=== PATIENT | male | born 1945 | race Caucasian/White ===

== ENCOUNTER 2016-11-13 20:27 | Inpatient (IN) | payer MEDICARE ==
[~2016-11-13] VITALS: Ht 182.9 cm; Wt 92.1 kg
[2016-11-13 21:23] LABS: BASOPHILS # (AUTO) 0.1 /CMM (0.0-0.2); BASOPHILS % (AUTO) 0.8 % (0.0-2.0); DIFF TOTAL % 100 %; EOSINOPHILS # (AUTO) 0.3 /CMM (0.0-0.7); EOSINOPHILS % (AUTO) 3.1 % (0.0-6.0); HEMATOCRIT 43 % (39-51); HEMOGLOBIN 13.8 g/dL (13.5-17.5); LYMPHOCYTES # (AUTO) 2.4 /CMM (0.8-4.8); LYMPHOCYTES % (AUTO) 23.3 % (20.0-44.0); MEAN CORPUSCULAR HEMOGLOBIN 28 PG (26.0-33.0); MEAN CORPUSCULAR HGB CONC 33 g/dl (31.0-36.0); MEAN CORPUSCULAR VOLUME 87 fL (80-96); MONOCYTES # (AUTO) 0.9 /CMM (0.1-1.30); MONOCYTES % (AUTO) 8.5 % (2.0-12.0); NEUTROPHILS # (AUTO) 6.7 /CMM (1.8-8.9); NEUTROPHILS % (AUTO) 64.3 % (43.0-81.0); PLATELET COUNT (AUTO) 180 /CMM (150-450); RED BLOOD CELL COUNT(AUTO) 4.89 MIL/uL (4.5-6.0); WHITE BLOOD COUNT (AUTO) 10.4 K/uL (4.3-11.0)
[2016-11-13 21:30] LABS: KETONES,URINE NEGATIVE (NEGATIVE); LEUKOCYTE ESTERASE ,URINE NEGATIVE (NEGATIVE)
[2016-11-13 21:31] LABS: ADD UA MICROSCOPIC YES
[2016-11-13 21:35] LABS: ADD URINE CULTURE NO; RBC,URINE 21-50 /HPF (0-2)
[2016-11-13 21:39] LABS: ANION GAP 13 (5-14); CALCIUM, SERUM 8.7 mg/dL (8.5-10.1); CARBON DIOXIDE 29 mmol/L (21-32); CHLORIDE 102 mmol/L (98-107); GFR 74 mL/min (>60); GLUCOSE 115 mg/dL (74-106); POTASSIUM 4.4 mmol/L (3.5-5.1); SODIUM SERUM 139 mmol/L (136-145); UREA NITROGEN, BLOOD 16 mg/dL (7-18)
[2016-11-13 21:45] LABS: CANNABINOID, URINE NEGATIVE (NEGATIVE); PHENCYCLIDINE SCREEN,URINE NEGATIVE (NEGATIVE)
[2016-11-13 21:45] LABS: ALANINE AMINOTRANSFERASE 15 U/L (12-78); ALBUMIN 3.8 g/dL (3.4-5.0); ASPARTATE AMINOTRANSFERASE 13 U/L (15-37); BILIRUBIN,DIRECT 0.1 mg/dL (0.0-0.2); BILIRUBIN,TOTAL 0.2 mg/dL (0.2-1.0); INDIRECT BILIRUBIN 0.1 mg/dL (0.0-1.1); TOTAL PROTEIN, SERUM 7.2 g/dL (6.4-8.2)
[2016-11-13] MEDS ORDERED: LISI-607 PO (22:31)
[2016-11-13] MEDS ORDERED: AMLO5TAB2 PO (22:31)
[2016-11-13] MEDS ORDERED: QUET50TA PO (22:31)
[2016-11-13] MEDS ORDERED: CARB200T PO (22:31)
[2016-11-13] MEDS ORDERED: PANT40TA2 PO (22:31)
[2016-11-13] MEDS ORDERED: SIMV20TA6 PO (22:31)
[2016-11-13 22:45] VITALS: BP 155/89
[2016-11-13] MEDS ORDERED: ACETAMINOPHEN 325 MG TABLET PO PRN (23:30)
[2016-11-13] MEDS ORDERED: MAGNESIUM HYDROXIDE 30 ML UDC PO PRN (23:30)
[2016-11-13] MEDS ORDERED: MAG HYDROX/AL HYDROX/SIMETH 30 ML UDC PO PRN (23:30)
[2016-11-14 06:46] LABS: BASOPHILS % (AUTO) 0.4 % (0.0-2.0); DIFF TOTAL % 100 %; EOSINOPHILS # (AUTO) 0.2 /CMM (0.0-0.7); EOSINOPHILS % (AUTO) 2.8 % (0.0-6.0); HEMATOCRIT 44 % (39-51); HEMOGLOBIN 14.6 g/dL (13.5-17.5); LYMPHOCYTES # (AUTO) 1.9 /CMM (0.8-4.8); LYMPHOCYTES % (AUTO) 22.7 % (20.0-44.0); MEAN CORPUSCULAR HEMOGLOBIN 29 PG (26.0-33.0); MEAN CORPUSCULAR HGB CONC 33 g/dl (31.0-36.0); MEAN CORPUSCULAR VOLUME 87 fL (80-96); MONOCYTES # (AUTO) 0.7 /CMM (0.1-1.30); MONOCYTES % (AUTO) 8.6 % (2.0-12.0); NEUTROPHILS # (AUTO) 5.4 /CMM (1.8-8.9); NEUTROPHILS % (AUTO) 65.5 % (43.0-81.0); PLATELET COUNT (AUTO) 189 /CMM (150-450); RED BLOOD CELL COUNT(AUTO) 5.07 MIL/uL (4.5-6.0); WHITE BLOOD COUNT (AUTO) 8.2 K/uL (4.3-11.0)
[2016-11-14 06:53] LABS: ALBUMIN 3.7 g/dL (3.4-5.0); BILIRUBIN,TOTAL 0.3 mg/dL (0.2-1.0); CALCIUM, SERUM 8.5 mg/dL (8.5-10.1); CREATININE 0.8 mg/dL (0.6-1.3); POTASSIUM 4.3 mmol/L (3.5-5.1); TOTAL PROTEIN, SERUM 7.1 g/dL (6.4-8.2)
[2016-11-14 08:00] VITALS: BP 121/79
[2016-11-14] MEDS: LISINOPRIL (5MG) 5 MG TABLET PO SCH (08:44)
[2016-11-14] MEDS: AMLODIPINE BESYLATE 5 MG TABLET PO SCH (08:44)
[2016-11-14] MEDS: PANTOPRAZOLE 40 MG TABLET.DR PO SCH (08:44)
[2016-11-14 16:00] VITALS: BP 117/79
[2016-11-14] MEDS ORDERED: METF10002 PO (16:49)
[2016-11-14] MEDS: QUETIAPINE FUMARATE 25 MG TABLET PO SCH (17:11)
[2016-11-14] MEDS: CARBAMAZEPINE 200 MG TABLET PO SCH (17:11)
[2016-11-14] MEDS: METFORMIN 500 MG TABLET PO SCH (18:42)
[2016-11-14] MEDS: SIMVASTATIN 20 MG TABLET PO SCH (21:21)
[2016-11-14 23:40] VITALS: BP 143/91
[2016-11-15 08:00] VITALS: BP 121/83
[2016-11-15] MEDS: AMLODIPINE BESYLATE 5 MG TABLET PO SCH (08:40)
[2016-11-15] MEDS: QUETIAPINE FUMARATE 25 MG TABLET PO SCH ×2 (08:40→16:22)
[2016-11-15] MEDS: CARBAMAZEPINE 200 MG TABLET PO SCH ×2 (08:40→16:22)
[2016-11-15] MEDS: METFORMIN 500 MG TABLET PO SCH ×2 (08:40→16:22)
[2016-11-15] MEDS: PANTOPRAZOLE 40 MG TABLET.DR PO SCH (08:40)
[2016-11-15] MEDS: LISINOPRIL (5MG) 5 MG TABLET PO SCH (08:41)
[2016-11-15 15:48] VITALS: BP 125/77
[2016-11-15 20:00] VITALS: BP 144/69
[2016-11-15] MEDS: SIMVASTATIN 20 MG TABLET PO SCH (21:14)
[2016-11-16] MEDS: CARBAMAZEPINE 200 MG TABLET PO SCH ×2 (08:26→17:33)
[2016-11-16] MEDS: PANTOPRAZOLE 40 MG TABLET.DR PO SCH (08:26)
[2016-11-16] MEDS: METFORMIN 500 MG TABLET PO SCH ×2 (08:27→17:33)
[2016-11-16] MEDS: LISINOPRIL (5MG) 5 MG TABLET PO SCH (08:27)
[2016-11-16] MEDS: AMLODIPINE BESYLATE 5 MG TABLET PO SCH (08:27)
[2016-11-16] MEDS: QUETIAPINE FUMARATE 25 MG TABLET PO SCH ×2 (08:27→17:33)
[2016-11-16 08:45] VITALS: BP 105/76
[2016-11-16 17:17] VITALS: BP 110/70
[2016-11-16 19:53] VITALS: BP 132/90
[2016-11-16] MEDS: SIMVASTATIN 20 MG TABLET PO SCH (21:20)
[2016-11-17 08:00] VITALS: BP 105/60
[2016-11-17] MEDS: CARBAMAZEPINE 200 MG TABLET PO SCH ×2 (08:44→16:36)
[2016-11-17] MEDS: METFORMIN 500 MG TABLET PO SCH ×2 (08:44→16:36)
[2016-11-17] MEDS: QUETIAPINE FUMARATE 25 MG TABLET PO SCH (08:45)
[2016-11-17] MEDS: PANTOPRAZOLE 40 MG TABLET.DR PO SCH (08:46)
[2016-11-17] MEDS: LISINOPRIL (5MG) 5 MG TABLET PO SCH (08:47)
[2016-11-17] MEDS: AMLODIPINE BESYLATE 5 MG TABLET PO SCH (08:47)
[2016-11-17 16:00] VITALS: BP 118/78
[2016-11-17 19:46] VITALS: BP 124/80
[2016-11-17] MEDS: QUETIAPINE FUMARATE 100 MG TABLET PO SCH (21:36)
[2016-11-17] MEDS: SIMVASTATIN 20 MG TABLET PO SCH (21:36)
[2016-11-18 08:21] VITALS: BP 127/82
[2016-11-18 08:24] LABS: CALCIUM, SERUM 8.5 mg/dL (8.5-10.1); CREATININE 0.8 mg/dL (0.6-1.3); POTASSIUM 4.4 mmol/L (3.5-5.1)
[2016-11-18] MEDS: QUETIAPINE FUMARATE 100 MG TABLET PO SCH ×2 (08:29→21:29)
[2016-11-18] MEDS: AMLODIPINE BESYLATE 5 MG TABLET PO SCH (08:29)
[2016-11-18] MEDS: LISINOPRIL (5MG) 5 MG TABLET PO SCH (08:29)
[2016-11-18] MEDS: CARBAMAZEPINE 200 MG TABLET PO SCH ×2 (08:29→17:10)
[2016-11-18] MEDS: PANTOPRAZOLE 40 MG TABLET.DR PO SCH (08:30)
[2016-11-18] MEDS: METFORMIN 500 MG TABLET PO SCH ×2 (08:30→17:10)
[2016-11-18 08:34] LABS: BASOPHILS % (AUTO) 0.4 % (0.0-2.0); DIFF TOTAL % 100 %; EOSINOPHILS # (AUTO) 0.1 /CMM (0.0-0.7); EOSINOPHILS % (AUTO) 1.7 % (0.0-6.0); HEMATOCRIT 44 % (39-51); HEMOGLOBIN 14.7 g/dL (13.5-17.5); LYMPHOCYTES # (AUTO) 1.7 /CMM (0.8-4.8); MEAN CORPUSCULAR HEMOGLOBIN 29 PG (26.0-33.0); MEAN CORPUSCULAR HGB CONC 34 g/dl (31.0-36.0); MEAN CORPUSCULAR VOLUME 87 fL (80-96); MONOCYTES # (AUTO) 0.6 /CMM (0.1-1.30); MONOCYTES % (AUTO) 7.6 % (2.0-12.0); NEUTROPHILS # (AUTO) 5.2 /CMM (1.8-8.9); NEUTROPHILS % (AUTO) 68.3 % (43.0-81.0); PLATELET COUNT (AUTO) 196 /CMM (150-450); RED BLOOD CELL COUNT(AUTO) 5.02 MIL/uL (4.5-6.0); WHITE BLOOD COUNT (AUTO) 7.7 K/uL (4.3-11.0)
[2016-11-18 16:00] VITALS: BP 116/69
[2016-11-18 20:39] VITALS: BP 132/76
[2016-11-18] MEDS: SIMVASTATIN 20 MG TABLET PO SCH (21:29)
[2016-11-19] MEDS: LISINOPRIL (5MG) 5 MG TABLET PO SCH (08:08)
[2016-11-19] MEDS: METFORMIN 500 MG TABLET PO SCH ×2 (08:08→16:55)
[2016-11-19] MEDS: AMLODIPINE BESYLATE 5 MG TABLET PO SCH (08:08)
[2016-11-19] MEDS: CARBAMAZEPINE 200 MG TABLET PO SCH ×2 (08:09→16:55)
[2016-11-19] MEDS: PANTOPRAZOLE 40 MG TABLET.DR PO SCH (08:09)
[2016-11-19] MEDS: QUETIAPINE FUMARATE 100 MG TABLET PO SCH ×2 (08:09→21:27)
[2016-11-19 08:21] VITALS: BP 100/68
[2016-11-19] MEDS ORDERED: LORAZEPAM 0.5 MG TABLET PO PRN (13:30)
[2016-11-19 16:23] VITALS: BP 108/66
[2016-11-19 19:55] VITALS: BP 123/80
[2016-11-19] MEDS: SIMVASTATIN 20 MG TABLET PO SCH (21:27)
[2016-11-20 08:00] VITALS: BP 117/80
[2016-11-20] MEDS: QUETIAPINE FUMARATE 100 MG TABLET PO SCH ×2 (08:16→20:29)
[2016-11-20] MEDS: CARBAMAZEPINE 200 MG TABLET PO SCH ×2 (08:16→16:32)
[2016-11-20] MEDS: METFORMIN 500 MG TABLET PO SCH ×2 (08:16→16:33)
[2016-11-20] MEDS: PANTOPRAZOLE 40 MG TABLET.DR PO SCH (08:16)
[2016-11-20] MEDS: AMLODIPINE BESYLATE 5 MG TABLET PO SCH (08:16)
[2016-11-20] MEDS: LISINOPRIL (5MG) 5 MG TABLET PO SCH (08:17)
[2016-11-20 16:00] VITALS: BP 96/52
[2016-11-20 20:00] VITALS: BP 127/78
[2016-11-20] MEDS: SIMVASTATIN 20 MG TABLET PO SCH (21:17)
[2016-11-21 08:00] VITALS: BP 130/78
[2016-11-21 08:28] VITALS: BP 130/78
[2016-11-21] MEDS: CARBAMAZEPINE 200 MG TABLET PO SCH (08:28)
[2016-11-21] MEDS: PANTOPRAZOLE 40 MG TABLET.DR PO SCH (08:28)
[2016-11-21] MEDS: AMLODIPINE BESYLATE 5 MG TABLET PO SCH (08:28)
[2016-11-21] MEDS: QUETIAPINE FUMARATE 100 MG TABLET PO SCH (08:28)
[2016-11-21] MEDS: METFORMIN 500 MG TABLET PO SCH (08:28)
[2016-11-21] MEDS: LISINOPRIL (5MG) 5 MG TABLET PO SCH (08:28)
== END 2016-11-21 11:45 | DRG 885 ==
LOC: ER 20:30 → GPS 22:20
PROVIDERS: ADMIT Psychiatry & Neurology Psychiatry; ATTEND Internal Medicine
DX: F39 Unspecified mood [affective] disorder (principal); F29 Unspecified psychosis not due to a substance or known physiological condition; E11.9 Type 2 diabetes mellitus without complications; E78.5 Hyperlipidemia, unspecified; F03.90 Unspecified dementia, unspecified severity, without behavioral disturbance, psychotic disturbance, mood disturbance, and anxiety; F32.9 Major depressive disorder, single episode, unspecified; K21.9 Gastro-esophageal reflux disease without esophagitis; I10 Essential (primary) hypertension; F41.9 Anxiety disorder, unspecified; Z91.19 Patient's noncompliance with other medical treatment and regimen
CPT/HCPCS: 36415; 80048-TC; 80053-TC; 80061-TC; 80076-TC; 80305; 81000-TC; 85025-TC; 87081-TC; A4606; G6040-TC; Z7610

== ENCOUNTER 2017-01-02 12:55 | Inpatient (IN) | payer MEDICARE, OTHER ==
[~2017-01-02] VITALS: Ht 180.3 cm; Wt 93.0 kg
[~2017-01-02 12:55] MED LIST: AMLO5TAB2 PO; CARB200T PO; LISI-607 PO; METF10002 PO; PANT40TA2 PO; QUET50TA PO; SIMV20TA6 PO
[2017-01-02] MEDS ORDERED: MAGN400O6 PO (13:06)
[2017-01-02] MEDS ORDERED: METF500T4 PO (13:06)
[2017-01-02] MEDS ORDERED: LORA0.5T PO (13:06)
[2017-01-02] MEDS ORDERED: BISA10SU8 RC (13:06)
[2017-01-02] MEDS ORDERED: DOCU-25 PO (13:06)
[2017-01-02] MEDS ORDERED: NA P133E RC (13:06)
[2017-01-02] MEDS ORDERED: QUET25TA PO (13:06)
[2017-01-02] MEDS ORDERED: IV NS 0.9% 1,000 ML BAG IV ONE (13:30)
[2017-01-02] MEDS ORDERED: IV SET PRIMARY 1 EA INFUS.SET MC ONE (13:48)
[2017-01-02] MEDS ORDERED: IV NS 0.9% 1,000 ML ONE (13:48)
[2017-01-02 13:57] LABS: BASOPHILS # (AUTO) 0.1 /CMM (0.0-0.2); BASOPHILS % (AUTO) 0.6 % (0.0-2.0); DIFF TOTAL % 100 %; EOSINOPHILS # (AUTO) 0.3 /CMM (0.0-0.7); EOSINOPHILS % (AUTO) 2.8 % (0.0-6.0); HEMATOCRIT 44 % (39-51); HEMOGLOBIN 14.2 g/dL (13.5-17.5); LYMPHOCYTES # (AUTO) 2.4 /CMM (0.8-4.8); LYMPHOCYTES % (AUTO) 21.8 % (20.0-44.0); MEAN CORPUSCULAR HEMOGLOBIN 28 PG (26.0-33.0); MEAN CORPUSCULAR HGB CONC 32 g/dl (31.0-36.0); MEAN CORPUSCULAR VOLUME 86 fL (80-96); MONOCYTES # (AUTO) 0.9 /CMM (0.1-1.30); MONOCYTES % (AUTO) 8.6 % (2.0-12.0); NEUTROPHILS # (AUTO) 7.3 /CMM (1.8-8.9); NEUTROPHILS % (AUTO) 66.2 % (43.0-81.0); PLATELET COUNT (AUTO) 233 /CMM (150-450)
[2017-01-02 14:06] LABS: CALCIUM, SERUM 8.4 mg/dL (8.5-10.1); CREATININE 0.8 mg/dL (0.6-1.3); POTASSIUM 4.2 mmol/L (3.5-5.1)
[2017-01-02] MEDS ORDERED: IV NS 0.9% 250 ML IV ONE (14:07)
[2017-01-02] MEDS ORDERED: IOHEXOL-300 100 ML VIAL IV ONE (14:07)
[2017-01-02] MEDS ORDERED: CT SWABBABLE VALVE TRANS SET 1 EA INFUS.SET MC ONE (14:07)
[2017-01-02 14:10] LABS: INR 0.99 (0.87-1.13); PROTHROMBIN TIME 10.4 SECS (9.5-12.7)
[2017-01-02 14:12] LABS: ALBUMIN 3.5 g/dL (3.4-5.0); BILIRUBIN,DIRECT 0.1 mg/dL (0.0-0.2); BILIRUBIN,TOTAL 0.2 mg/dL (0.2-1.0); INDIRECT BILIRUBIN 0.1 mg/dL (0.0-1.1); TOTAL PROTEIN, SERUM 7.2 g/dL (6.4-8.2)
[2017-01-02 14:40] LABS: THYROID STIMULATING HORMONE 0.488 uIU/mL (0.358-3.74)
[2017-01-02] MEDS ORDERED: MAGNESIUM HYDROXIDE 30 ML UDC PO PRN ×2 (18:30→22:00)
[2017-01-02] MEDS ORDERED: HYDROCODONE/APAP 5/325MG 1 EACH TABLET PO PRN (18:30)
[2017-01-02] MEDS ORDERED: ACETAMINOPHEN 325 MG TABLET PO PRN (18:30)
[2017-01-02] MEDS ORDERED: MAG HYDROX/AL HYDROX/SIMETH 30 ML UDC PO PRN (18:30)
[2017-01-02] MEDS ORDERED: ONDANSETRON HCL/PF 4 MG/2 ML VIAL IVP PRN (18:30)
[2017-01-02] MEDS ORDERED: LORAZEPAM 0.5 MG TABLET PO PRN ×2 (19:00→20:00)
[2017-01-02 20:15] VITALS: BP 143/75
[2017-01-02] MEDS ORDERED: TEMAZEPAM 15 MG CAPSULE PO PRN (22:00)
[2017-01-02] MEDS ORDERED: SIMVASTATIN 20 MG TABLET PO SCH (22:00)
[2017-01-02] MEDS: QUETIAPINE FUMARATE 100 MG TABLET PO SCH (22:02)
[2017-01-02] MEDS: CARBAMAZEPINE 200 MG TABLET PO SCH (22:02)
[2017-01-03 07:30] LABS: BASOPHILS % (AUTO) 0.3 % (0.0-2.0); DIFF TOTAL % 100 %; EOSINOPHILS # (AUTO) 0.3 /CMM (0.0-0.7); EOSINOPHILS % (AUTO) 3.2 % (0.0-6.0); HEMATOCRIT 45 % (39-51); HEMOGLOBIN 14.8 g/dL (13.5-17.5); LYMPHOCYTES # (AUTO) 2.6 /CMM (0.8-4.8); LYMPHOCYTES % (AUTO) 28.4 % (20.0-44.0); MEAN CORPUSCULAR HEMOGLOBIN 29 PG (26.0-33.0); MEAN CORPUSCULAR HGB CONC 33 g/dl (31.0-36.0); MEAN CORPUSCULAR VOLUME 87 fL (80-96); MONOCYTES # (AUTO) 0.9 /CMM (0.1-1.30); MONOCYTES % (AUTO) 9.7 % (2.0-12.0); NEUTROPHILS # (AUTO) 5.3 /CMM (1.8-8.9); NEUTROPHILS % (AUTO) 58.4 % (43.0-81.0); PLATELET COUNT (AUTO) 236 /CMM (150-450); RED BLOOD CELL COUNT(AUTO) 5.15 MIL/uL (4.5-6.0); WHITE BLOOD COUNT (AUTO) 9.2 K/uL (4.3-11.0)
[2017-01-03] MEDS ORDERED: PANTOPRAZOLE 40 MG TABLET.DR PO SCH (07:30)
[2017-01-03 07:45] LABS: CALCIUM, SERUM 8.8 mg/dL (8.5-10.1); CREATININE 0.9 mg/dL (0.6-1.3); PHOSPHORUS 4.2 mg/dL (2.5-4.9); POTASSIUM 4.9 mmol/L (3.5-5.1)
[2017-01-03 08:00] VITALS: BP 124/74
[2017-01-03] MEDS: CARBAMAZEPINE 200 MG TABLET PO SCH ×2 (08:19→16:40)
[2017-01-03] MEDS: METFORMIN 500 MG TABLET PO SCH ×2 (08:19→16:41)
[2017-01-03 08:21] VITALS: BP 131/73
[2017-01-03] MEDS: QUETIAPINE FUMARATE 100 MG TABLET PO SCH (08:21)
[2017-01-03] MEDS ORDERED: AMLODIPINE BESYLATE 5 MG TABLET PO SCH (09:00)
[2017-01-03] MEDS ORDERED: METFORMIN 500 MG TABLET PO SCH (09:00)
[2017-01-03] MEDS ORDERED: ENOXAPARIN SODIUM 40 MG/0.4 ML DISP.SYRIN SQ SCH (09:00)
[2017-01-03] MEDS ORDERED: DOCUSATE SODIUM 100 MG CAPSULE PO SCH ×2 (09:00)
[2017-01-03] MEDS ORDERED: LISINOPRIL (5MG) 5 MG TABLET PO SCH (09:00)
[2017-01-03] MEDS ORDERED: IV NS 0.9% 500 ML IV ONE (18:30)
== END 2017-01-03 18:30 | DRG 606 ==
LOC: ER 12:56 → MED 19:27
PROVIDERS: ADMIT Nurse Practitioner Acute Care; ATTEND Nurse Practitioner Acute Care
DX: D17.0 Benign lipomatous neoplasm of skin and subcutaneous tissue of head, face and neck (principal); G93.40 Encephalopathy, unspecified; I10 Essential (primary) hypertension; E11.9 Type 2 diabetes mellitus without complications; F32.9 Major depressive disorder, single episode, unspecified; F29 Unspecified psychosis not due to a substance or known physiological condition; E78.5 Hyperlipidemia, unspecified; K21.9 Gastro-esophageal reflux disease without esophagitis; F03.90 Unspecified dementia, unspecified severity, without behavioral disturbance, psychotic disturbance, mood disturbance, and anxiety
CPT/HCPCS: 36415; 70491-TC; 80048-TC; 80061-TC; 80076-TC; 82962-TC; 83735-TC; 84100-TC; 84439-TC; 84443-TC; 85025-TC; 85730-TC; 87081-TC; A4606; J1650; J7030; J7040; J7050; Q9967; Z7610

== ENCOUNTER 2017-05-06 16:35 | Inpatient (IN) | payer MEDICARE, OTHER ==
[~2017-05-06] VITALS: Ht 182.9 cm; Wt 88.9 kg
[~2017-05-06 16:35] MED LIST changes: +BISA10SU8 RC; +DOCU-25 PO; +LORA0.5T PO; +MAGN400O6 PO; -METF10002 PO; +METF500T4 PO; +NA P133E RC; +QUET25TA PO; -QUET50TA PO
--- NOTE | 2017-05-06 16:53 | NUR ---
PT BIB PA FOR EVAL D/T INCREASED AGITATION X1 WK PER EMS. ON PRESENTATION PT IS CALM, COPPERATIVE, COMPLIANT WITH STAFF INSTRUCTION. A/OX2. DENIES PHYSICAL COMPLAINTS OR PAIN. NAD NOTED. IN ER BED 09.
--- NOTE | 2017-05-06 16:58 | NUR ---
BOATBUILDER APPRENTICE WOOD AT BEDSIDE
[2017-05-06 17:14] LABS: EOSINOPHILS % (AUTO) 5.6 % (0.0-6.0)
[2017-05-06 17:18] LABS: CALCIUM, SERUM 8.7 mg/dL (8.5-10.1); CARBON DIOXIDE 29 mmol/L (21-32); CHLORIDE 99 mmol/L (98-107); CREATININE 0.9 mg/dL (0.6-1.3); GLUCOSE 101 mg/dL (74-106); POTASSIUM 4.4 mmol/L (3.5-5.1); SODIUM SERUM 136 mmol/L (136-145); UREA NITROGEN, BLOOD 13 mg/dL (7-18)
[2017-05-06 17:20] LABS: BASOPHILS # (AUTO) 0.2 /CMM (0.0-0.2); BASOPHILS % (AUTO) 1.4 % (0.0-2.0); EOSINOPHILS # (AUTO) 0.7 /CMM (0.0-0.7); HEMATOCRIT 44 % (39-51); HEMOGLOBIN 14.4 g/dL (13.5-17.5); LYMPHOCYTES # (AUTO) 2.4 /CMM (0.8-4.8); LYMPHOCYTES % (AUTO) 20.1 % (20.0-44.0); MEAN CORPUSCULAR HEMOGLOBIN 29 PG (26.0-33.0); MEAN CORPUSCULAR HGB CONC 33 g/dl (31.0-36.0); MEAN CORPUSCULAR VOLUME 89 fL (80-96); MONOCYTES # (AUTO) 1.2 /CMM (0.1-1.30); NEUTROPHILS # (AUTO) 7.3 /CMM (1.8-8.9); NEUTROPHILS % (AUTO) 62.9 % (43.0-81.0); PLATELET COUNT (AUTO) 235 /CMM (150-450); RDW COEFFICIENT OF VARIATION 13.4 (11.5-15.0); RED BLOOD CELL COUNT(AUTO) 4.96 MIL/uL (4.5-6.0); WHITE BLOOD COUNT (AUTO) 11.8 K/uL (4.3-11.0)
[2017-05-06 17:23] LABS: ALANINE AMINOTRANSFERASE 17 U/L (12-78); ALBUMIN 3.6 g/dL (3.4-5.0); ALCOHOL, BLOOD < 3 mg/dL (0-0); ALKALINE PHOSPHATASE 76 U/L (46-116); ASPARTATE AMINOTRANSFERASE 12 U/L (15-37); BILIRUBIN,DIRECT 0.1 mg/dL (0.0-0.2); BILIRUBIN,TOTAL 0.2 mg/dL (0.2-1.0)
[2017-05-06 17:24] LABS: ACETAMINOPHEN 0 ug/ml (10-30); SALICYLATE 1.5 mg/dL (2.8-20.0)
--- NOTE | 2017-05-06 17:28 | NUR ---
PROVIDED URINE SAPLE BY CLEAN CATCH
--- NOTE | 2017-05-06 17:42 | NUR ---
CALLED [facility] LUTHER FOR PSYCH EVAL
[2017-05-06 17:44] LABS: APPEARANCE,URINE Clear (CLEAR); BILIRUBIN,URINE Negative (NEGATIVE); BLOOD, URINE Negative Ery/uL (NEGATIVE); COLOR,URINE Yellow (YELLOW); KETONES,URINE Negative (NEGATIVE); LEUKOCYTE ESTERASE ,URINE Negative (NEGATIVE); NITRITE, URINE Negative (NEGATIVE); PROTEIN,URINE Negative (NEGATIVE); UGLUCOSE Negative (NEGATIVE)
--- NOTE | 2017-05-06 18:33 | NUR ---
[facility] AT BEDSIDE
[2017-05-06] MEDS ORDERED: TEMA15CA5 PO (18:34)
[2017-05-06] MEDS ORDERED: FLUO15CR TP (18:34)
[2017-05-06] MEDS ORDERED: HYDR-552 PO (18:34)
[2017-05-06] MEDS ORDERED: ACET325T53 PO (18:34)
--- NOTE | 2017-05-06 19:25 | NUR ---
REPORT GIVEN TO GPS NURSE
[2017-05-06] MEDS ORDERED: MAG HYDROX/AL HYDROX/SIMETH 30 ML UDC PO PRN (20:00)
[2017-05-06] MEDS ORDERED: MAGNESIUM HYDROXIDE 30 ML UDC PO PRN ×2 (20:00→21:00)
[2017-05-06] MEDS ORDERED: ACETAMINOPHEN 325 MG TABLET PO PRN ×2 (20:00→21:00)
[2017-05-06] MEDS ORDERED: LORAZEPAM 0.5 MG TABLET PO PRN (20:00)
[2017-05-06 21:00] VITALS: BP 132/78
[2017-05-06] MEDS ORDERED: NA PHOS,M-B/NA PHOS,DI-BA 1 EA ENEMA RC PRN (21:00)
[2017-05-06] MEDS: HYDROCODONE/APAP 5/325MG 1 EACH TABLET PO SCH (21:00)
[2017-05-06] MEDS ORDERED: BISACODYL SUPP (10 MG) 10 MG/SUPP.RECT SUPP.RECT RC PRN (21:00)
--- NOTE | 2017-05-06 21:00 | NUR ---
GPS RN ADMITTED NOTES ADMITTED THIS 71Y/O MALE FROM [facility] ER ,PT. INITIALLY FROM [facility] PT. CAME TO THE UNIT VIA WHEELCHAIR ACCOMPANIED ER STAFF PT. IS ON 5150 HOLD ,GRAVELY DISABLE, PER HOLD FOR INCREASED AGITATION , COMBATIVE , VERBAL AGGRESSION , AND THREATENING TO OTHERS RESIDENTS ,GRAVELY DISABLE PER HOLD ,UPON FACE TO FACE ASSESSMENT PT. UNABLE TO FOLLOW COMMANDS AND UNCOOPERATIVE COMBATIVE AGGRESSIVE ANXIOUS , MENTAL HX OF MAJOR DEPRESSION,DEMENTIA, ANXIETY DISORDER .MEDICAL HX OF GERD, DM,GENERALIZED WEAKNESS, PT.REFUSED TO SKIN/ BODY ASSESSMENT AND PT . ENCOURAGED FOR SKIN ASSESSMENT PT. STILL REFUSED , BOTH MD AWARE OF NEW ADMISSION NEW ORDERS RECEIVED AND CARRIED OUT, REORIENT TO UNIT POLICES AND CONTRABAND CHECKS , WILL CONTINUE TO MONITOR FOR SAFETY AND BEHAVIOR .
--- NOTE | 2017-05-06 21:26 | NUR ---
RN GPS NOTES PT. REFUSED NORCO 5-325 MG , PT.STATED I DON'T NEED THIS MEDS AN DENIES ANY PAIN AT THIS TIME P, WILL CONTINUE TO MONITOR .
[2017-05-06] MEDS: SIMVASTATIN 20 MG TABLET PO SCH (22:14)
[2017-05-07] MEDS: HYDROCODONE/APAP 5/325MG 1 EACH TABLET PO SCH ×3 (01:00→08:12)
--- NOTE | 2017-05-07 01:06 | NUR ---
RN GPS NOTES PT. REFUSED NORCO 5-325 MG , AT 0100 PT.STATED I DONT WANTED IT ,DENIES ANY PAIN AT THIS TIME , WILL CONTINUE TO MONITOR .
[2017-05-07] MEDS: TEMAZEPAM 7.5 MG CAPSULE PO PRN ×2 (02:09→22:04)
--- NOTE | 2017-05-07 05:04 | NUR ---
RN GPS NOTES NON ADMINSTATION NORCO 5-325 MG PO , AT 0500 PT. REFUSED AT THIS ,DENIES ANY PAIN AT THIS TIME , WILL CONTINUE TO MONITOR .
--- NOTE | 2017-05-07 06:43 | NUR ---
RN GPS NOTES PT. , DENIES SI HI AT THIS TIME NO ACUTE DISTRESS NOTED, ATTENDED ALL NEEDS ANTICIPATED , PT .ENCOURAGED FOR SKIN / BODY ASSESSMENT ,EXPLAINED RISKS AND BENEFITS STILL REFUSED SKIN BODY ASSESSMENT, ENDORSE TO NEXT SHIFT FOR CONTINUITY OF CARE .
[2017-05-07 07:15] LABS: CREATININE 0.7 mg/dL (0.6-1.3)
[2017-05-07 08:10] VITALS: BP 115/70
[2017-05-07] MEDS: PANTOPRAZOLE 40 MG TABLET.DR PO SCH (08:11)
[2017-05-07] MEDS: DOCUSATE SODIUM 100 MG CAPSULE PO SCH (08:11)
[2017-05-07] MEDS: AMLODIPINE BESYLATE 5 MG TABLET PO SCH (08:12)
[2017-05-07] MEDS: LISINOPRIL (5MG) 5 MG TABLET PO SCH (08:12)
[2017-05-07] MEDS: METFORMIN 500 MG TABLET PO SCH ×2 (08:12→17:30)
[2017-05-07] MEDS: FLUOCINONIDE 0.05% CREAM 60 GM TUBE TP SCH ×2 (08:15→17:30)
[2017-05-07] MEDS: QUETIAPINE FUMARATE 25 MG TABLET PO SCH ×3 (10:39→22:03)
[2017-05-07] MEDS: DIVALPROEX SODIUM 125 MG CAP.SPRINK PO SCH ×2 (10:39→22:03)
[2017-05-07] MEDS ORDERED: HYDROCODONE/APAP 5/325MG 1 EACH TABLET PO PRN (12:30)
--- NOTE | 2017-05-07 15:48 | NUR ---
Initial Discharge Plan: Patient resides at [address] [facility] [address]. ([phone]). layout worker attempted to contact patient's sister Jo Euceda ([phone]/ ([phone]). However, she was unavailable, clinical social worker left a message with her contact information and will attempt again later. layout worker spoke to Valerie from the facility who confirmed that patient can return upon discharge. layout worker will help form a safe and proper discharge.
[2017-05-07 20:00] VITALS: BP 129/87
[2017-05-07] MEDS: SIMVASTATIN 20 MG TABLET PO SCH (22:03)
[2017-05-08] MEDS: QUETIAPINE FUMARATE 25 MG TABLET PO SCH ×3 (05:28→20:44)
[2017-05-08 07:13] LABS: BASOPHILS % (AUTO) 0.4 % (0.0-2.0); EOSINOPHILS # (AUTO) 0.5 /CMM (0.0-0.7); EOSINOPHILS % (AUTO) 5.1 % (0.0-6.0); HEMATOCRIT 47 % (39-51); HEMOGLOBIN 15.7 g/dL (13.5-17.5); LYMPHOCYTES # (AUTO) 2.2 /CMM (0.8-4.8); MEAN CORPUSCULAR HEMOGLOBIN 30 PG (26.0-33.0); MEAN CORPUSCULAR HGB CONC 34 g/dl (31.0-36.0); MEAN CORPUSCULAR VOLUME 90 fL (80-96); MONOCYTES # (AUTO) 0.7 /CMM (0.1-1.30); MONOCYTES % (AUTO) 6.6 % (2.0-12.0); NEUTROPHILS # (AUTO) 7.3 /CMM (1.8-8.9); NEUTROPHILS % (AUTO) 67.9 % (43.0-81.0); PLATELET COUNT (AUTO) 229 /CMM (150-450); RDW COEFFICIENT OF VARIATION 14.1 (11.5-15.0); RED BLOOD CELL COUNT(AUTO) 5.16 MIL/uL (4.5-6.0); WHITE BLOOD COUNT (AUTO) 10.8 K/uL (4.3-11.0)
[2017-05-08] MEDS: PANTOPRAZOLE 40 MG TABLET.DR PO SCH (07:55)
[2017-05-08 08:00] VITALS: BP 128/75
[2017-05-08] MEDS: DOCUSATE SODIUM 100 MG CAPSULE PO SCH (08:15)
[2017-05-08] MEDS: METFORMIN 500 MG TABLET PO SCH ×2 (08:15→16:12)
[2017-05-08] MEDS: LISINOPRIL (5MG) 5 MG TABLET PO SCH (08:15)
[2017-05-08] MEDS: AMLODIPINE BESYLATE 5 MG TABLET PO SCH (08:16)
[2017-05-08] MEDS: DIVALPROEX SODIUM 125 MG CAP.SPRINK PO SCH ×2 (08:16→20:44)
[2017-05-08] MEDS: FLUOCINONIDE 0.05% CREAM 60 GM TUBE TP SCH ×2 (08:21→16:13)
[2017-05-08 15:58] VITALS: BP 102/56
[2017-05-08 19:55] VITALS: BP 110/71
[2017-05-08 20:00] VITALS: BP 110/71
[2017-05-08] MEDS: SIMVASTATIN 20 MG TABLET PO SCH (20:44)
[2017-05-09] MEDS: QUETIAPINE FUMARATE 25 MG TABLET PO SCH ×3 (05:49→21:18)
[2017-05-09 08:00] VITALS: BP 108/69
[2017-05-09] MEDS: METFORMIN 500 MG TABLET PO SCH ×2 (08:15→16:30)
[2017-05-09] MEDS: AMLODIPINE BESYLATE 5 MG TABLET PO SCH (08:15)
[2017-05-09] MEDS: DIVALPROEX SODIUM 125 MG CAP.SPRINK PO SCH ×2 (08:16→21:18)
[2017-05-09] MEDS: PANTOPRAZOLE 40 MG TABLET.DR PO SCH (08:16)
[2017-05-09] MEDS: DOCUSATE SODIUM 100 MG CAPSULE PO SCH (08:16)
[2017-05-09] MEDS: LISINOPRIL (5MG) 5 MG TABLET PO SCH (08:16)
[2017-05-09] MEDS: FLUOCINONIDE 0.05% CREAM 60 GM TUBE TP SCH ×2 (08:17→16:32)
[2017-05-09 16:00] VITALS: BP 120/73
[2017-05-09 20:00] VITALS: BP 119/63
[2017-05-09] MEDS: SIMVASTATIN 20 MG TABLET PO SCH (21:25)
[2017-05-09] MEDS: TEMAZEPAM 7.5 MG CAPSULE PO PRN (21:25)
[2017-05-10] MEDS: QUETIAPINE FUMARATE 25 MG TABLET PO SCH ×3 (06:41→21:25)
[2017-05-10 08:15] VITALS: BP 118/70
[2017-05-10] MEDS: DOCUSATE SODIUM 100 MG CAPSULE PO SCH (08:37)
[2017-05-10] MEDS: PANTOPRAZOLE 40 MG TABLET.DR PO SCH (08:37)
[2017-05-10] MEDS: METFORMIN 500 MG TABLET PO SCH ×2 (08:38→16:30)
[2017-05-10] MEDS: LISINOPRIL (5MG) 5 MG TABLET PO SCH (08:38)
[2017-05-10] MEDS: DIVALPROEX SODIUM 125 MG CAP.SPRINK PO SCH ×2 (08:38→21:25)
[2017-05-10] MEDS: AMLODIPINE BESYLATE 5 MG TABLET PO SCH (08:39)
[2017-05-10] MEDS: FLUOCINONIDE 0.05% CREAM 60 GM TUBE TP SCH ×2 (08:41→16:31)
--- NOTE | 2017-05-10 10:00 | NUR ---
[id number]: PT IS ISOLATIVE, WITHDRAWN, GUARDED, ANXIOUS, RESTLESS. PT REQUIRES CONSTANT PROMPTING AND CUING TO COMPLETE TASK. PT REFUSED TO PARTICIPATE IN GROUP ACTIVITY. ENCOURAGE PT TO TAKE SHOWER. PT STATED,"I WILL TAKE ONE LATER."
[2017-05-10 16:00] VITALS: BP 122/69
[2017-05-10 19:46] VITALS: BP 124/73
[2017-05-10] MEDS: SIMVASTATIN 20 MG TABLET PO SCH (21:25)
[2017-05-10] MEDS: TEMAZEPAM 7.5 MG CAPSULE PO PRN (21:26)
[2017-05-11] MEDS: QUETIAPINE FUMARATE 25 MG TABLET PO SCH ×3 (05:03→21:08)
[2017-05-11] MEDS: PANTOPRAZOLE 40 MG TABLET.DR PO SCH (07:46)
[2017-05-11 08:00] VITALS: BP 106/76
[2017-05-11] MEDS: AMLODIPINE BESYLATE 5 MG TABLET PO SCH (08:06)
[2017-05-11] MEDS: METFORMIN 500 MG TABLET PO SCH ×2 (08:06→16:03)
[2017-05-11] MEDS: DIVALPROEX SODIUM 125 MG CAP.SPRINK PO SCH ×2 (08:07→16:03)
[2017-05-11] MEDS: DOCUSATE SODIUM 100 MG CAPSULE PO SCH (08:07)
[2017-05-11] MEDS: LISINOPRIL (5MG) 5 MG TABLET PO SCH (08:10)
[2017-05-11] MEDS: FLUOCINONIDE 0.05% CREAM 60 GM TUBE TP SCH ×2 (08:11→16:04)
--- NOTE | 2017-05-11 10:00 | NUR ---
[id number]: PT IS OBSERVED TO BE ANXIOUS, RESTLESS, CONFUSED. PT REQUIRES CONSTANT REDIRECTION AND PROMPTING TO COMPLETE TASK AT HAND. PT IS ABLE TO ENGAGED IN CONVERSATION WITH STAFF AND PEERS. ENCOURAGE PT TO VERBALIZE EMOTIONS AND CONCERNS. WILL CONTINUE TO MONITOR FOR SAFETY AND BEHAVIOR EVERY 15 MINUTES.
[2017-05-11 16:00] VITALS: BP 136/76
[2017-05-11 19:37] VITALS: BP 138/88
[2017-05-11] MEDS: SIMVASTATIN 20 MG TABLET PO SCH (21:08)
[2017-05-11] MEDS: TEMAZEPAM 7.5 MG CAPSULE PO PRN (21:08)
[2017-05-12] MEDS: QUETIAPINE FUMARATE 25 MG TABLET PO SCH ×3 (05:23→21:19)
[2017-05-12] MEDS: PANTOPRAZOLE 40 MG TABLET.DR PO SCH (07:57)
[2017-05-12 08:00] VITALS: BP 119/67
[2017-05-12] MEDS: DOCUSATE SODIUM 100 MG CAPSULE PO SCH (08:01)
[2017-05-12] MEDS: DIVALPROEX SODIUM 125 MG CAP.SPRINK PO SCH ×3 (08:02→16:20)
[2017-05-12] MEDS: AMLODIPINE BESYLATE 5 MG TABLET PO SCH (08:02)
[2017-05-12] MEDS: LISINOPRIL (5MG) 5 MG TABLET PO SCH (08:02)
[2017-05-12] MEDS: METFORMIN 500 MG TABLET PO SCH ×2 (08:02→16:20)
[2017-05-12] MEDS: FLUOCINONIDE 0.05% CREAM 60 GM TUBE TP SCH ×2 (08:03→16:21)
[2017-05-12 16:00] VITALS: BP 121/75
[2017-05-12 21:09] VITALS: BP 136/78
[2017-05-12] MEDS: TEMAZEPAM 7.5 MG CAPSULE PO PRN (21:19)
[2017-05-12] MEDS: SIMVASTATIN 20 MG TABLET PO SCH (21:19)
[2017-05-13] MEDS: QUETIAPINE FUMARATE 25 MG TABLET PO SCH ×3 (05:49→21:00)
--- NOTE | 2017-05-13 07:40 | NUR ---
ALERT AND ORIENTED X1-2.VS STABLE. WANDERS AROUD FLOOR THEN FORGETS WHER RM. IS.
[2017-05-13 08:02] VITALS: BP 121/78
[2017-05-13] MEDS: METFORMIN 500 MG TABLET PO SCH ×2 (09:14→17:44)
[2017-05-13] MEDS: DIVALPROEX SODIUM 125 MG CAP.SPRINK PO SCH ×2 (09:14→13:58)
[2017-05-13] MEDS: PANTOPRAZOLE 40 MG TABLET.DR PO SCH (09:14)
[2017-05-13] MEDS: AMLODIPINE BESYLATE 5 MG TABLET PO SCH (09:15)
[2017-05-13] MEDS: LISINOPRIL (5MG) 5 MG TABLET PO SCH (09:15)
[2017-05-13] MEDS: FLUOCINONIDE 0.05% CREAM 60 GM TUBE TP SCH ×2 (09:16→17:45)
[2017-05-13] MEDS: DOCUSATE SODIUM 100 MG CAPSULE PO SCH (09:17)
--- NOTE | 2017-05-13 15:00 | NUR ---
DR. CARDONA IN TO SEE PT.
[2017-05-13 16:00] VITALS: BP 108/65
--- NOTE | 2017-05-13 16:28 | NUR ---
child daycare worker spoke to patient's sister Jo Chairez / [phone]) who wanted updates on the patient. child daycare worker provided patient's sister with updates and she was satisfied with the information. child daycare worker will keep following-up with patient's sister.
[2017-05-13 20:00] VITALS: BP 123/72
[2017-05-13] MEDS: SIMVASTATIN 20 MG TABLET PO SCH (21:00)
[2017-05-13] MEDS: TEMAZEPAM 7.5 MG CAPSULE PO PRN (21:00)
[2017-05-14] MEDS: QUETIAPINE FUMARATE 25 MG TABLET PO SCH ×3 (05:27→20:46)
[2017-05-14 08:00] VITALS: BP 111/69
[2017-05-14] MEDS: LISINOPRIL (5MG) 5 MG TABLET PO SCH (08:33)
[2017-05-14] MEDS: PANTOPRAZOLE 40 MG TABLET.DR PO SCH (08:33)
[2017-05-14] MEDS: METFORMIN 500 MG TABLET PO SCH ×2 (08:33→17:13)
[2017-05-14] MEDS: AMLODIPINE BESYLATE 5 MG TABLET PO SCH (08:34)
[2017-05-14] MEDS: DOCUSATE SODIUM 100 MG CAPSULE PO SCH (08:37)
[2017-05-14] MEDS: DIVALPROEX SODIUM 125 MG CAP.SPRINK PO SCH ×2 (08:40→17:14)
[2017-05-14] MEDS: FLUOCINONIDE 0.05% CREAM 60 GM TUBE TP SCH (08:41)
--- NOTE | 2017-05-14 15:37 | NUR ---
brewery worker spoke to patient's sister Jo Chairez / [phone]) and informed her that patient will be discharged tomorrow 05/15/[address] [address]. ([phone]). Patient's sister was agreeable with the discharge plan.
--- NOTE | 2017-05-14 15:54 | NUR ---
home weatherizing worker informed January from the facility that Patient will be returning to [facility] [address] [facility]. [facility] [address]. ([phone]) tomorrow 05/15/17. The facility was agreeable.
[2017-05-14 16:00] VITALS: BP 120/76
[2017-05-14 19:50] VITALS: BP 119/76
[2017-05-14 20:00] VITALS: BP 119/76
[2017-05-14] MEDS: SIMVASTATIN 20 MG TABLET PO SCH (20:46)
[2017-05-14] MEDS: TEMAZEPAM 7.5 MG CAPSULE PO PRN (20:46)
[2017-05-15] MEDS: QUETIAPINE FUMARATE 25 MG TABLET PO SCH ×2 (05:02→12:44)
[2017-05-15 08:00] VITALS: BP 123/77
[2017-05-15 08:46] VITALS: BP 123/77
[2017-05-15] MEDS: LISINOPRIL (5MG) 5 MG TABLET PO SCH (08:46)
[2017-05-15] MEDS: DOCUSATE SODIUM 100 MG CAPSULE PO SCH (08:46)
[2017-05-15] MEDS: AMLODIPINE BESYLATE 5 MG TABLET PO SCH (08:46)
[2017-05-15] MEDS: DIVALPROEX SODIUM 125 MG CAP.SPRINK PO SCH (08:47)
[2017-05-15] MEDS: PANTOPRAZOLE 40 MG TABLET.DR PO SCH (08:47)
[2017-05-15] MEDS: METFORMIN 500 MG TABLET PO SCH (08:47)
--- NOTE | 2017-05-15 09:50 | NUR ---
RN-CO: Dr. Carvajal ordered to discharge patient and discontinue hold , noted. Pt remains calm and cooperative, denied suicidal and homicidal ideation. Denied auditory and visual hallucination.
--- NOTE | 2017-05-15 12:50 | NUR ---
GPS RN: PATIENT DISCHARGED TO [facility]. PATIENT'S CONDITION IS STABLE FOR DISCHARGE, VS STABLE, PATIENT DENIES ANY SI/HI AT THE TIME OF DISCHARGE. ALL BELONGINGS RETURNED TO THE PATIENT, MEDICATIONS RECONCILED AND THE COPY PROVIDED TO THE PATIENT. REPORT GIVEN TO ASHKAN BATRES AT THE FACILITY. PATIENT LEFT THE UNIT ON A GURNEY VIA [facility].
--- NOTE | 2017-05-15 15:50 | NUR ---
Discharge Note: Patient was discharged to [facility] [address] [facility]. [facility] [address]. ([phone]). Via med response. Patient's sister Jo Euceda ([phone]/ ([phone]) was notified. Patient and patient's sister were agreeable with the discharge plan. Patient's mood and affect were appropriate upon discharge. Patient denied suicidal and homicidal ideations. Patient will follow-up with Dr. Hayes ([phone]) at the facility. Facilitated info to IDT team who are in agreement with discharge arrangement. The multidisciplinary exitcare form was done, printed, signed, and given to the patient.
== END 2017-05-15 12:50 | DRG 885 ==
LOC: ER 16:38 → GPS 19:13
PROVIDERS: ADMIT Psychiatry & Neurology Psychiatry; ATTEND Psychiatry & Neurology Psychiatry
DX: F39 Unspecified mood [affective] disorder (principal); F29 Unspecified psychosis not due to a substance or known physiological condition; E11.9 Type 2 diabetes mellitus without complications; F22 Delusional disorders; F41.9 Anxiety disorder, unspecified; D72.829 Elevated white blood cell count, unspecified; E78.5 Hyperlipidemia, unspecified; I10 Essential (primary) hypertension; Z88.2 Allergy status to sulfonamides; F32.9 Major depressive disorder, single episode, unspecified; Z73.6 Limitation of activities due to disability; Z79.899 Other long term (current) drug therapy; Z79.84 Long term (current) use of oral hypoglycemic drugs; K59.00 Constipation, unspecified; F03.90 Unspecified dementia, unspecified severity, without behavioral disturbance, psychotic disturbance, mood disturbance, and anxiety
CPT/HCPCS: 36415; 80048-TC; 80061-TC; 80076-TC; 80305; 81000-TC; 82565-TC; 85025-TC; 87081-TC; A4606; G0480; Z7610

== ENCOUNTER 2017-05-29 09:28 | Emergency (ER) | payer MEDICARE, MEDICAID ==
[~2017-05-29] VITALS: Ht 182.9 cm; Wt 88.9 kg
[~2017-05-29 09:28] MED LIST changes: +ACET325T53 PO; +FLUO15CR TP; +HYDR-552 PO; +TEMA15CA5 PO
--- NOTE | 2017-05-29 09:30 | NUR ---
R AC G 18 IV STARTED.
--- NOTE | 2017-05-29 09:30 | NUR ---
PT TO ED ROOM 02. [facility] FROM SNF C/O INCREASING WEAKNESS S/P GLF. SIDE RAILS UP. HOB ELEVTAED. CONNECTED TO MONITOR. CHANGED TO GOWN. SHEA AT [facility].
[2017-05-29] MEDS ORDERED: MORPHINE SULFATE INJ 2 MG/ML DISP.SYRIN ONE (09:48)
[2017-05-29] MEDS ORDERED: ONDANSETRON HCL/PF 4 MG/2 ML VIAL ONE (09:48)
[2017-05-29 09:49] LABS: WHITE BLOOD COUNT (AUTO) 8.1 K/uL (4.3-11.0)
[2017-05-29 09:50] LABS: BASOPHILS % (AUTO) 0.6 % (0.0-2.0); EOSINOPHILS % (AUTO) 4.1 % (0.0-6.0); HEMATOCRIT 44 % (39-51); HEMOGLOBIN 14.1 g/dL (13.5-17.5); LYMPHOCYTES % (AUTO) 22.6 % (20.0-44.0); MEAN CORPUSCULAR HEMOGLOBIN 29 PG (26.0-33.0); MEAN CORPUSCULAR HGB CONC 32 g/dl (31.0-36.0); MEAN CORPUSCULAR VOLUME 90 fL (80-96); MONOCYTES % (AUTO) 10.4 % (2.0-12.0); NEUTROPHILS % (AUTO) 62.3 % (43.0-81.0); PLATELET COUNT (AUTO) 189 /CMM (150-450); RDW COEFFICIENT OF VARIATION 13.4 (11.5-15.0); RED BLOOD CELL COUNT(AUTO) 4.88 MIL/uL (4.5-6.0)
[2017-05-29 09:59] LABS: CALCIUM, SERUM 8.5 mg/dL (8.5-10.1); CREATININE 0.9 mg/dL (0.6-1.3); POTASSIUM 3.9 mmol/L (3.5-5.1)
[2017-05-29] MEDS ORDERED: MORPHINE SULFATE INJ 2 MG/ML DISP.SYRIN IV ONE (10:00)
[2017-05-29] MEDS ORDERED: ONDANSETRON HCL/PF 4 MG/2 ML VIAL IVP ONE (10:00)
[2017-05-29 10:03] LABS: INR 0.97 (0.87-1.13); PROTHROMBIN TIME 10.1 SECS (9.5-12.7)
[2017-05-29 10:08] LABS: TROPONIN I 0.019 ng/mL (0.00-0.056)
--- NOTE | 2017-05-29 10:29 | NUR ---
[facility] ETA 30 MIN.
--- NOTE | 2017-05-29 10:41 | NUR ---
IV removed. Catheter intact and site benign. Pressure and 4x4 applied to site. No bleeding noted.
--- NOTE | 2017-05-29 10:42 | NUR ---
Patient discharged to snf in stable condition VIA AMBULANCE. Written and verbal after care instructions given.
[2017-05-29 10:43] VITALS: BP 135/68
== END 2017-05-29 10:44 | disposition home or self-care (01) ==
LOC: ER 09:31
DX: S30.1XXA Contusion of abdominal wall, initial encounter (principal); M54.5 Low back pain; F03.90 Unspecified dementia, unspecified severity, without behavioral disturbance, psychotic disturbance, mood disturbance, and anxiety; E11.9 Type 2 diabetes mellitus without complications; G93.89 Other specified disorders of brain; I10 Essential (primary) hypertension; Z66 Do not resuscitate; Z88.2 Allergy status to sulfonamides; W18.30XA Fall on same level, unspecified, initial encounter; Y93.89 Activity, other specified; Y92.89 Other specified places as the place of occurrence of the external cause; Y99.8 Other external cause status
CPT/HCPCS: 36415; 70450; 71010; 72170; 80048; 84484; 85025; 85730; 93005; 96374; 96375; 99285; A4606; J2270; J2405; Z7610

== ENCOUNTER 2017-06-04 20:01 | Emergency (ER) | payer MEDICARE, MEDICAID ==
[~2017-06-04] VITALS: Ht 185.4 cm; Wt 81.6 kg
--- NOTE | 2017-06-04 20:11 | NUR ---
pt greg from [facility]. per report, fell off his chair. lt knee bruising noted. no report of head trauma. pt appears confused. gowned and placed on monitor. awaiting md osorio.
--- NOTE | 2017-06-04 20:18 | NUR ---
dr mejias at bedside for eval.
--- NOTE | 2017-06-04 20:26 | NUR ---
pt to radiology for head ct and chest and l knee xray via [facility].
--- NOTE | 2017-06-04 21:46 | NUR ---
CALLED [facility] FOR TRANSPORT TO [facility], ETA 20 MIN
[2017-06-04 22:19] VITALS: BP 124/73
--- NOTE | 2017-06-04 22:20 | NUR ---
Patient discharged BLS ambulance [facility] in [facility]. Written and verbal after care instructions and copies of imaging results given. Patient verbalizes understanding of instruction. VSS, NAD noted on DC. Denies complaint on DC.
--- NOTE | 2017-06-04 22:23 | NUR ---
[facility] is [facility] for [facility].
== END 2017-06-04 22:23 ==
LOC: ER 20:05
DX: S80.02XA Contusion of left knee, initial encounter (principal); I10 Essential (primary) hypertension; F03.90 Unspecified dementia, unspecified severity, without behavioral disturbance, psychotic disturbance, mood disturbance, and anxiety; E11.9 Type 2 diabetes mellitus without complications; Z88.2 Allergy status to sulfonamides; W18.39XA Other fall on same level, initial encounter; Y93.89 Activity, other specified; Y92.89 Other specified places as the place of occurrence of the external cause; Y99.9 Unspecified external cause status
CPT/HCPCS: 70450-TC; 71010-TC; 73564-TC; A4606; Z7610

== ENCOUNTER 2017-06-19 12:30 | Inpatient (IN) | payer MEDICARE, MEDICAID ==
[~2017-06-19] VITALS: Ht 182.9 cm; Wt 91.2 kg
--- NOTE | 2017-06-19 12:40 | NUR ---
BB PA FROM [facility]: S/P UNWITNESSED GLF IN AM; ABRASION TO FOREHEAD, R KNEE. VSS. PT [id number]. SEEN BY FOR EVAL. SAFETY AND COMFORT MEASURES PROVIDED. WILL MONITOR.
[2017-06-19 12:48] LABS: BASOPHILS # (AUTO) 0.1 /CMM (0.0-0.2); BASOPHILS % (AUTO) 0.9 % (0.0-2.0); EOSINOPHILS # (AUTO) 0.1 /CMM (0.0-0.7); EOSINOPHILS % (AUTO) 0.9 % (0.0-6.0); HEMATOCRIT 45 % (39-51); HEMOGLOBIN 14.7 g/dL (13.5-17.5); LYMPHOCYTES # (AUTO) 1.9 /CMM (0.8-4.8); MEAN CORPUSCULAR HEMOGLOBIN 30 PG (26.0-33.0); MEAN CORPUSCULAR HGB CONC 33 g/dl (31.0-36.0); MEAN CORPUSCULAR VOLUME 91 fL (80-96); MONOCYTES # (AUTO) 0.8 /CMM (0.1-1.30); MONOCYTES % (AUTO) 6.7 % (2.0-12.0); NEUTROPHILS # (AUTO) 9.7 /CMM (1.8-8.9); NEUTROPHILS % (AUTO) 76.5 % (43.0-81.0); PLATELET COUNT (AUTO) 180 /CMM (150-450); RDW COEFFICIENT OF VARIATION 13.8 (11.5-15.0); RED BLOOD CELL COUNT(AUTO) 4.98 MIL/uL (4.5-6.0); WHITE BLOOD COUNT (AUTO) 12.6 K/uL (4.3-11.0)
[2017-06-19 12:50] LABS: CALCIUM, SERUM 8.2 mg/dL (8.5-10.1); POTASSIUM 4.6 mmol/L (3.5-5.1)
[2017-06-19 12:58] LABS: TROPONIN I 0.065 ng/mL (0.00-0.056)
[2017-06-19] MEDS ORDERED: DIVA500T2 PO (12:58)
[2017-06-19] MEDS ORDERED: MAG30ORA PO (12:58)
[2017-06-19 13:00] LABS: INR 0.99 (0.87-1.13); PROTHROMBIN TIME 10.3 SECS (9.5-12.7)
[2017-06-19 13:06] LABS: ALBUMIN 3.4 g/dL (3.4-5.0); BILIRUBIN,DIRECT 0.1 mg/dL (0.0-0.2); BILIRUBIN,TOTAL 0.2 mg/dL (0.2-1.0); TOTAL PROTEIN, SERUM 6.7 g/dL (6.4-8.2)
--- NOTE | 2017-06-19 13:07 | NUR ---
PAGED REROLLING MACHINE OPERATOR PANEL, DR AGOSTO
--- NOTE | 2017-06-19 13:34 | NUR ---
REPORT GIVEN TO PALMA PRAJAPATI FOR TELE ROOM 328-1.
[2017-06-19 14:30] VITALS: BP 142/73
--- NOTE | 2017-06-19 14:30 | NUR ---
tele gasoline service attendant: admission admitted this 71 yr old male pt from [facility] with dx: syncope, s/p glf from snf. noted with pedro knee with contusion with discoloration and right forehead dry abrasion and dry laceration to left heel. pt awake, a/ox1-2, able to make simple needs known. pt easily agitated and irritable. pt has hx: psychosis in the past. oriented to room and surroundings. 1:1 intervention provided prn. at times pt refuse to answer admission questionnaire. pt able to ambulate to bathroom without using a device. gait slow, but steady. place pt on tele sr=82. no c/o pain at this time, but pedro knees tender to touch. denies sob, n/v, dizziness, and chest pain at this time. instructed to call for assistance. urinal provided. awaiting for dr. novak to put in the admitting orders. will continue to monitor.
--- NOTE | 2017-06-19 15:00 | NUR ---
tele bearingizer: notes left message to dr. novak re: admission.
[2017-06-19 16:00] VITALS: BP 144/73
--- NOTE | 2017-06-19 16:00 | NUR ---
tele deicer inspector pneumatic: notes still awaiting for admitting orders. left message to dr. novak re: dnr advance directive via voice mail.
[2017-06-19] MEDS ORDERED: DEXTROSE 50%-WATER 50 ML DISP.SYRIN IV PRN (16:30)
[2017-06-19] MEDS ORDERED: MAG HYDROX/AL HYDROX/SIMETH 30 ML UDC PO PRN ×2 (16:30)
[2017-06-19] MEDS ORDERED: MAGNESIUM HYDROXIDE 30 ML UDC PO PRN ×2 (16:30)
[2017-06-19] MEDS ORDERED: ACETAMINOPHEN 325 MG TABLET PO PRN ×2 (16:30)
[2017-06-19] MEDS ORDERED: NA PHOS,M-B/NA PHOS,DI-BA 1 EA ENEMA RC PRN (16:30)
[2017-06-19] MEDS ORDERED: HYDROCODONE/APAP 5/325MG 1 EACH TABLET PO PRN ×2 (16:30)
[2017-06-19] MEDS ORDERED: INSULIN REGULAR, HUMAN 100 UNIT/ML 3 ML VIAL SQ PRN (16:30)
[2017-06-19] MEDS ORDERED: ONDANSETRON HCL/PF 4 MG/2 ML VIAL IVP PRN (16:30)
[2017-06-19] MEDS ORDERED: Z GUARD REMEDY 2 OZ OINT TP PRN (16:30)
[2017-06-19] MEDS ORDERED: BISACODYL SUPP (10 MG) 10 MG/SUPP.RECT SUPP.RECT RC PRN (16:30)
[2017-06-19] MEDS ORDERED: ZOLPIDEM TARTRATE 5 MG TABLET PO PRN (16:30)
[2017-06-19] MEDS: DIVALPROEX SODIUM 500 MG TABLET.DR PO SCH (16:39)
[2017-06-19] MEDS: ENOXAPARIN SODIUM 40 MG/0.4 ML DISP.SYRIN SQ SCH (16:42)
[2017-06-19] MEDS: BLOOD SUGAR DIAGNOSTIC 1 EACH STRIP VI SCH ×2 (17:12→21:44)
[2017-06-19] MEDS: Potassium Chloride 20 MEQ in IV NS 0.9% 1,000 ML IV PRN (18:37)
--- NOTE | 2017-06-19 19:15 | NUR ---
tele steel rigger: notes report given to salvador (rn) for continuity of care.
--- NOTE | 2017-06-19 19:43 | NUR ---
Tele/rn opening notes Patient in bed, awake, alert x2. Watching tv and can verbalize needs. Require some orientation ,Safety measures w/ call lights within reach , bed alarm on and reminders to always ask fo assistance Attend to neds. Iv site on right ac. iv running w/ no s/s of infiltration. mo pain verbalized. will continue to monitor.
[2017-06-19 20:00] VITALS: BP 143/83
[2017-06-19] MEDS: QUETIAPINE FUMARATE 25 MG TABLET PO SCH (20:45)
[2017-06-19] MEDS: SIMVASTATIN 20 MG TABLET PO SCH (21:32)
[2017-06-20] VITALS: BP 99/62
[2017-06-20] MEDS: QUETIAPINE FUMARATE 25 MG TABLET PO SCH ×3 (05:14→20:29)
[2017-06-20] MEDS: BLOOD SUGAR DIAGNOSTIC 1 EACH STRIP VI SCH ×4 (06:12→21:42)
--- NOTE | 2017-06-20 06:16 | NUR ---
Tele/rn closing notes Patient in bed, resting in bed. Alert, oriented x2. No pain observed and verbalized. Safety measures provided with bed alarm,call lights within reach and assistance as patient does not want to use call lights instead gets up unassisted. require monitoring at all times. Cooperative to care and provided fluids. Iv site on right arm , patent w/ no s/s of infiltration. Will endorse to am rn regarding continuity of care.
[2017-06-20 06:18] LABS: BASOPHILS % (AUTO) 0.5 % (0.0-2.0); EOSINOPHILS # (AUTO) 0.1 /CMM (0.0-0.7); EOSINOPHILS % (AUTO) 1.7 % (0.0-6.0); HEMATOCRIT 41 % (39-51); HEMOGLOBIN 13.7 g/dL (13.5-17.5); LYMPHOCYTES # (AUTO) 1.9 /CMM (0.8-4.8); LYMPHOCYTES % (AUTO) 22.5 % (20.0-44.0); MEAN CORPUSCULAR HEMOGLOBIN 30 PG (26.0-33.0); MEAN CORPUSCULAR HGB CONC 33 g/dl (31.0-36.0); MEAN CORPUSCULAR VOLUME 91 fL (80-96); MONOCYTES # (AUTO) 0.8 /CMM (0.1-1.30); MONOCYTES % (AUTO) 9.9 % (2.0-12.0); NEUTROPHILS # (AUTO) 5.5 /CMM (1.8-8.9); NEUTROPHILS % (AUTO) 65.4 % (43.0-81.0); PLATELET COUNT (AUTO) 157 /CMM (150-450); RDW COEFFICIENT OF VARIATION 14.9 (11.5-15.0); RED BLOOD CELL COUNT(AUTO) 4.53 MIL/uL (4.5-6.0); WHITE BLOOD COUNT (AUTO) 8.4 K/uL (4.3-11.0)
[2017-06-20 06:37] LABS: CALCIUM, SERUM 7.9 mg/dL (8.5-10.1); CREATININE 0.8 mg/dL (0.6-1.3); MAGNESIUM 1.8 mg/dL (1.8-2.4); POTASSIUM 4.1 mmol/L (3.5-5.1)
--- NOTE | 2017-06-20 06:45 | NUR ---
ms/rn notes Patient reported some mild pain on abdomen and tylenol 650mg po given. Offered crackers and verbalized.
[2017-06-20] MEDS ORDERED: PANTOPRAZOLE 40 MG TABLET.DR PO SCH (07:30)
--- NOTE | 2017-06-20 07:30 | NUR ---
MS/RN Patient received Patient received from box shook patcher. Sleeping at this time, bed alarm switched on, sitter at bedside for safety. All needs attended, will continue to monitor and ensure safety.
[2017-06-20] MEDS: PANTOPRAZOLE 40 MG TABLET.DR PO SCH (08:51)
[2017-06-20] MEDS: LISINOPRIL (5MG) 5 MG TABLET PO SCH (09:00)
[2017-06-20] MEDS: AMLODIPINE BESYLATE 5 MG TABLET PO SCH (09:00)
[2017-06-20] MEDS: DIVALPROEX SODIUM 500 MG TABLET.DR PO SCH ×2 (09:13→17:18)
[2017-06-20] MEDS: DOCUSATE SODIUM 100 MG CAPSULE PO SCH (09:13)
[2017-06-20 09:27] VITALS: BP_SYST 112; BP_SYST 116; BP_DIAS 70; BP_DIAS 71
[2017-06-20 09:28] VITALS: BP 126/62
[2017-06-20] MEDS ORDERED: ASPIRIN 81 MG TAB.CHEW PO SCH (09:30)
--- NOTE | 2017-06-20 09:30 | NUR ---
MS/RN S/B Dr Soria Seen by Dr Soria - orthostatic blood pressures ordered: Lying - 112/70, HR 80 Sitting - 116/71, HR 87 Standing - 126/62, HR 102 Labs ordered for tomorrow, along with new order for aspirin.
--- NOTE | 2017-06-20 10:40 | NUR ---
MS/RN Urine collected Urine collected and sent to lab for urinalysis.
--- NOTE | 2017-06-20 11:00 | NUR ---
MS/RN S/B Dr Lantigua Seen by Dr Lantigua - urine ordered to be collected, EEG ordered.
[2017-06-20 11:16] LABS: APPEARANCE,URINE CLEAR (CLEAR); BILIRUBIN,URINE NEGATIVE (NEGATIVE); BLOOD, URINE NEGATIVE Ery/uL (NEGATIVE); COLOR,URINE YELLOW (YELLOW); KETONES,URINE NEGATIVE (NEGATIVE); LEUKOCYTE ESTERASE ,URINE NEGATIVE (NEGATIVE); NITRITE, URINE NEGATIVE (NEGATIVE); PROTEIN,URINE NEGATIVE (NEGATIVE); UGLUCOSE NEGATIVE (NEGATIVE)
[2017-06-20 11:21] LABS: UROBILINOGEN,URINE 0.2 EU/dL (0.2)
--- NOTE | 2017-06-20 11:30 | NUR ---
MS/RN Blood sugar Blood sugar 138, patient refused indulin coverage.
--- NOTE | 2017-06-20 12:40 | NUR ---
MS/RN EEG EEG in progress at bedside.
[2017-06-20 13:00] LABS: CHOLESTEROL 127 mg/dL (<200); HDL CHOLESTEROL 44 mg/dL (40-60); LDL 65 mg/dL (0-99); TRIGLYCERIDES 90 mg/dL (30-150)
--- NOTE | 2017-06-20 15:22 | NUR ---
MS/RN Rounds Patient remains calm and cooperative at this time, will continue to monitor.
[2017-06-20 16:00] VITALS: BP 127/79
--- NOTE | 2017-06-20 17:37 | NUR ---
MS/RN Blood sugar Blood sugar at 5p - 121, patient again refusing insulin coverage.
--- NOTE | 2017-06-20 18:31 | NUR ---
MS/RN End note Patient remains calm and cooperative, taking medications as ordered. No needs at this time, will endore to design transferrer.
[2017-06-20 20:00] VITALS: BP 109/74
--- NOTE | 2017-06-20 20:14 | NUR ---
RN NOTES RECEIVED PATIENT UP ON CHAIR, CONFUSED, NO SOB, NO DISTRESS, DENIES ANY PAIN AT THIS TIME, ABLE TO VERBALIZE NEEDS, WITH EPISODES OF RESTLESSNESS AND WANDERING, FALL RISK, S/P FALL IN SNF, REDIRECTIBLE, NEEDS ATTENDED, ONE ON ONE SITTER AT THE BEDSIDE, CALL LIGHT WITHIN REACH.
[2017-06-20] MEDS: ENOXAPARIN SODIUM 40 MG/0.4 ML DISP.SYRIN SQ SCH (20:30)
[2017-06-20] MEDS: SIMVASTATIN 20 MG TABLET PO SCH (21:41)
[2017-06-20] MEDS: *INSULIN REGULAR(HUMULIN R)HUM 100 UNIT/ML VIAL SQ PRN (21:50)
--- NOTE | 2017-06-20 21:51 | NUR ---
RN NOTES ACCUCHECK 117 MG/DL, INSULIN HELD
[2017-06-21] MEDS: QUETIAPINE FUMARATE 25 MG TABLET PO SCH ×3 (05:00→21:00)
[2017-06-21 05:30] VITALS: BP 139/74
[2017-06-21 05:32] VITALS: BP 138/85
[2017-06-21 05:35] VITALS: BP 143/78
[2017-06-21] MEDS: BLOOD SUGAR DIAGNOSTIC 1 EACH STRIP VI SCH ×4 (06:27→21:01)
--- NOTE | 2017-06-21 06:31 | NUR ---
RN NOTES ACCUCHECK 83 MG/DL, INSULIN HELD, GIVEN ORANGE JUICE, NO S/S OF HYPOGLYCEMIA
--- NOTE | 2017-06-21 07:09 | NUR ---
RN NOTES PATIENT IS ALERT AND AWAKE, NO SOB, NO DISTRESS, DENIES ANY PAIN, SLEPT FOR 5 HOURS, COMPLIANT WITH MEDICATION AND TREATMENT. WITH EPISODES IRRITABILITY, REDIRECTIBLE, ALL DUE MEDICATIONS GIVEN, ONE ON ONE SITTER AT THE BEDSIDE, CALL LIGHT WITHIN REACH.
[2017-06-21 07:11] LABS: TROPONIN I 0.029 ng/mL (0.00-0.056)
[2017-06-21 07:40] LABS: BILIRUBIN,TOTAL 0.3 mg/dL (0.2-1.0); CALCIUM, SERUM 8.3 mg/dL (8.5-10.1); CREATININE 0.8 mg/dL (0.6-1.3); PHOSPHORUS 4.1 mg/dL (2.5-4.9); TOTAL PROTEIN, SERUM 6.4 g/dL (6.4-8.2)
--- NOTE | 2017-06-21 07:44 | NUR ---
MS/RN OPENING NOTE PATIENT RECEIVED UP IN CHAIR IN STABLE CONDITION. ALERT AND ORIENTED TIMES 1. FALL RISK PATIENT WITH SITTER AT BEDSIDE. DENIES ANY PAIN OR DISCOMFORT. ALL NEEDS ATTENDED TO AT THIS TIME. CALL LIGHT WITH IN REACH. SITTER AT BEDSIDE. WILL CONTINUE TO MONITOR TO ENSURE SAFETY.
[2017-06-21 08:00] VITALS: BP 134/82
[2017-06-21] MEDS: ASPIRIN 325 MG TABLET PO SCH (09:01)
[2017-06-21] MEDS: DIVALPROEX SODIUM 500 MG TABLET.DR PO SCH ×2 (09:01→17:06)
[2017-06-21] MEDS: AMLODIPINE BESYLATE 5 MG TABLET PO SCH (09:02)
[2017-06-21] MEDS: DOCUSATE SODIUM 100 MG CAPSULE PO SCH (09:02)
[2017-06-21] MEDS: LISINOPRIL (5MG) 5 MG TABLET PO SCH (09:02)
[2017-06-21] MEDS: PANTOPRAZOLE 40 MG TABLET.DR PO SCH (09:02)
--- NOTE | 2017-06-21 09:15 | NUR ---
MS/RN S/B Dr Hawley Seen by Dr Hawley - for possible discharge today back to facility if cleared by cardiology.
--- NOTE | 2017-06-21 11:00 | NUR ---
MS/RN S/B Dr Soria Seen by Dr Soria - nuclear medicine stress test to be ordered for tomorrow. NPO from midnight.
--- NOTE | 2017-06-21 12:40 | NUR ---
MS/RN Blood sugar Blood sugar at noon - 106, no coverage required.
--- NOTE | 2017-06-21 15:15 | NUR ---
MS/RN SEEN BY DR COLUNGA SEEN BY DR COLUNGA WITH NEW ORDER OF LEXISCAN STRESS TEST ON 06/22/17.
--- NOTE | 2017-06-21 15:17 | NUR ---
MS/RN SEEN BY DR. CODY MELO SEEN BY DR. MELO WITH NO NEW ORDERS AT THIS TIME.
[2017-06-21 16:00] VITALS: BP 113/61
--- NOTE | 2017-06-21 18:09 | NUR ---
MS/RN CLOSING NOTE RESIDENT IN BED IN STABLE CONDITION. SITTER AT BEDSIDE. NO SIGNS OF ACUTE DISTRESS. DENIES ANY PAIN OR DISCOMFORT. ALL NEEDS ATTENDED TO. CALL LIGHT WITHIN REACH. WILL ENDORSE TO NEXT SHIFT FOR CONTINUITY OF CARE.
--- NOTE | 2017-06-21 19:30 | NUR ---
MS RN OPENING NOTES: RECEIVED PT SITTING UP IN CHAIR. SITTER AT BEDSIDE. PT HAS IV ON R AC #18G FLUSHED AND IS PATENT AND INTACT. WILL CONNECT PT TO POTASSIUM CHLORIDE 20MEQ IN NS WHEN PATIENT GOES BACK TO BED. NO SIGNS OF ACUTE DISTRESS. DENIES ANY PAIN OR DISCOMFORT.WILL CONTINUE TO MONITOR PT.
[2017-06-21 20:00] VITALS: BP 123/80
[2017-06-21] MEDS: Potassium Chloride 20 MEQ in IV NS 0.9% 1,000 ML IV PRN (20:26)
--- NOTE | 2017-06-21 20:59 | NUR ---
MS RN NOTES: BLOOD SUGAR WAS 101. NO COVERAGE WAS GIVEN. WILL CONTINUE TO MONITOR PT.
[2017-06-21] MEDS: SIMVASTATIN 20 MG TABLET PO SCH (21:00)
[2017-06-21] MEDS: ENOXAPARIN SODIUM 40 MG/0.4 ML DISP.SYRIN SQ SCH (21:09)
[2017-06-22] MEDS: QUETIAPINE FUMARATE 25 MG TABLET PO SCH ×2 (05:00→12:22)
--- NOTE | 2017-06-22 05:08 | NUR ---
MS RN NOTES: SEROQUEL 150MG FOR AM WAS HELD D/T PT BEING NPO AND WILL GO FOR STRESS TEST THIS AM.
[2017-06-22] MEDS: BLOOD SUGAR DIAGNOSTIC 1 EACH STRIP VI SCH ×3 (06:19→18:22)
--- NOTE | 2017-06-22 06:56 | NUR ---
MS RN NOTES: BLOOD SUGAR THIS MORNING WAS 110. NO COVERAGE WAS GIVEN. WILL CONTINUE TO MONITOR PT.
[2017-06-22 07:01] LABS: BASOPHILS % (AUTO) 0.2 % (0.0-2.0); EOSINOPHILS # (AUTO) 0.3 /CMM (0.0-0.7); EOSINOPHILS % (AUTO) 3.5 % (0.0-6.0); HEMATOCRIT 41 % (39-51); HEMOGLOBIN 13.9 g/dL (13.5-17.5); LYMPHOCYTES # (AUTO) 2.1 /CMM (0.8-4.8); LYMPHOCYTES % (AUTO) 24.2 % (20.0-44.0); MEAN CORPUSCULAR HEMOGLOBIN 31 PG (26.0-33.0); MEAN CORPUSCULAR HGB CONC 34 g/dl (31.0-36.0); MEAN CORPUSCULAR VOLUME 91 fL (80-96); NEUTROPHILS # (AUTO) 5.1 /CMM (1.8-8.9); NEUTROPHILS % (AUTO) 60.1 % (43.0-81.0); PLATELET COUNT (AUTO) 168 /CMM (150-450); RDW COEFFICIENT OF VARIATION 14.9 (11.5-15.0); RED BLOOD CELL COUNT(AUTO) 4.53 MIL/uL (4.5-6.0); WHITE BLOOD COUNT (AUTO) 8.5 K/uL (4.3-11.0)
[2017-06-22 07:31] LABS: BILIRUBIN,TOTAL 0.4 mg/dL (0.2-1.0); CREATININE 0.8 mg/dL (0.6-1.3); PHOSPHORUS 3.8 mg/dL (2.5-4.9); POTASSIUM 4.2 mmol/L (3.5-5.1); TOTAL PROTEIN, SERUM 6.2 g/dL (6.4-8.2)
--- NOTE | 2017-06-22 07:34 | NUR ---
MS RN CLOSING NOTES: ALL NEEDS WERE ATTENDED AND ANTICIPATED FOR. PT IS LAYING IN BED RESTING. SITTER AT BEDSIDE. PT HAS IV ON R AC #18G AND IS BEING INFUSED WITH POTASSIUM CL 20MEQ IN IV NS 0.9% AT 75ML/HR. NO SIGNS OF ACUTE DISTRESS. DENIES ANY PAIN OR DISCOMFORT. URINAL OUTPUT WAS 700ML. ENDORSED TO AM NURSE FOR ANA CRISTINA.
--- NOTE | 2017-06-22 08:03 | NUR ---
RN OPENING NOTES PATIENT RESTING COMFORTABLY NI BED WITH EYES OPEN. PATIENT IS A/OX1. WILL REORIENT. SITTER AT BEDSIDE. PT HAS IV ON RAC 18G PATENT AND INTACT WITH K+ CL 20 MEQ IN NS AT 75 ML/HR. PATIENT APPEARS COMFORTABLE. NO SIGNS OF ACUTE DISTRESS. DENIES ANY PAIN OR DISCOMFORT. RESPIRATION APPEAR EVEN AND UNLABORED. DENIES SOB. WILL CONTINUE TO MONITOR PT.
[2017-06-22 08:11] VITALS: BP 127/80
--- NOTE | 2017-06-22 08:39 | NUR ---
RN NOTES PATIENT TAKEN BY NUCLEAR MEDICINE WITH SITTER FOR LEXISCAN STRESS TEST. WILL AWAIT FOR PATIENT TO RETURN. PATIENT HAS BEEN NPO SINCE MIDNIGHT.
[2017-06-22] MEDS ORDERED: REGADENOSON 0.4 MG/5 ML DISP.SYRIN IVP ONE (09:00)
--- NOTE | 2017-06-22 09:47 | NUR ---
RN NOTES BACTROBAN ORDERED FOR +MRSA NARES.
--- NOTE | 2017-06-22 09:59 | NUR ---
RN NOTES PATIENT RETURNED FROM [facility] IN STABLE CONDITION. PATIENT TRAY SAVED AND HE IS NOW EATING.
[2017-06-22] MEDS: ASPIRIN 325 MG TABLET PO SCH (10:09)
[2017-06-22 10:10] VITALS: BP 127/80
[2017-06-22] MEDS: LISINOPRIL (5MG) 5 MG TABLET PO SCH (10:10)
[2017-06-22] MEDS: DIVALPROEX SODIUM 500 MG TABLET.DR PO SCH ×2 (10:10→18:22)
[2017-06-22] MEDS: AMLODIPINE BESYLATE 5 MG TABLET PO SCH (10:10)
[2017-06-22] MEDS: DOCUSATE SODIUM 100 MG CAPSULE PO SCH (10:11)
[2017-06-22] MEDS: PANTOPRAZOLE 40 MG TABLET.DR PO SCH (10:11)
--- NOTE | 2017-06-22 10:50 | NUR ---
RN NOTES PATIENT TAKEN FOR SECOND PART OF LEXISCAN. WILL WAIT FOR PATIENT TO RETURN WITH SITTER VIA WHEELCHAIR.
--- NOTE | 2017-06-22 11:36 | NUR ---
NM: MYOCARDIAL PERFUSION IMAGING WAS COMPLETED: TECH:RB.
[2017-06-22] MEDS: *INSULIN REGULAR(HUMULIN R)HUM 100 UNIT/ML VIAL SQ PRN ×2 (12:16→18:26)
--- NOTE | 2017-06-22 19:01 | NUR ---
RN CLOSING NOTES REPORT GIVEN TO DAIANA LUTHER. PATIENT TRANSPORTED IN STABLE CONDITION. PATIENT DENIES SOB. PATIENT IN NO ACUTE DISTRESS. PATIENT HAS NO COMPLAINTS OF PAIN AT THIS. REPORT GIVEN TO AMBULANCE. DISCHARGE TEACHING DONE. ALL APPROPRIATE DOCUMENTATION GIVEN. PATIENT A/OX1. [facility]IA [facility].
[2017-06-22] MEDS ORDERED: MUPIROCIN OINT 2% 22 GM TUBE SCH (21:00)
== END 2017-06-22 19:15 | DRG 73 ==
LOC: ER 12:31 → TELE 14:12 → MED 06-20 09:55
PROVIDERS: ADMIT Internal Medicine; ATTEND Internal Medicine
DX: G90.8 Other disorders of autonomic nervous system (principal); I21.4 Non-ST elevation (NSTEMI) myocardial infarction; G93.89 Other specified disorders of brain; F03.90 Unspecified dementia, unspecified severity, without behavioral disturbance, psychotic disturbance, mood disturbance, and anxiety; S06.0X9A Concussion with loss of consciousness of unspecified duration, initial encounter; F20.9 Schizophrenia, unspecified; W19.XXXA Unspecified fall, initial encounter; E11.9 Type 2 diabetes mellitus without complications; G40.909 Epilepsy, unspecified, not intractable, without status epilepticus; E78.5 Hyperlipidemia, unspecified; F41.9 Anxiety disorder, unspecified; Z88.2 Allergy status to sulfonamides; I10 Essential (primary) hypertension; K21.9 Gastro-esophageal reflux disease without esophagitis; K59.00 Constipation, unspecified; R29.6 Repeated falls; Z66 Do not resuscitate; Z79.84 Long term (current) use of oral hypoglycemic drugs; Z79.899 Other long term (current) drug therapy; Z86.73 Personal history of transient ischemic attack (TIA), and cerebral infarction without residual deficits; Z91.81 History of falling; Y92.129 Unspecified place in nursing home as the place of occurrence of the external cause; Z79.4 Long term (current) use of insulin
CPT/HCPCS: 36415; 70450-TC; 71010-TC; 80048-TC; 80053-TC; 80061-TC; 80076-TC; 80164-TC; 81000-TC; 82962-TC; 83735-TC; 84100-TC; 84484-TC; 85025-TC; 85730-TC; 86850-TC; 87081-TC; 93307-TC; 93880-TC; 95819-TC; A9502; J1650; J1815; J2785; J3480; J7030; Z7610

== ENCOUNTER 2017-07-21 16:14 | Inpatient (IN) | payer MEDICARE, OTHER ==
[~2017-07-21] VITALS: Ht 180.3 cm; Wt 89.8 kg
[~2017-07-21 16:14] MED LIST changes: -CARB200T PO; +DIVA500T2 PO; -FLUO15CR TP; -LORA0.5T PO; +MAG30ORA PO; -TEMA15CA5 PO
--- NOTE | 2017-07-21 16:15 | NUR ---
BIRGIT FROM SNF FOR MEDICAL CLEARANCE FOR PSYCHE ADMISSION DR STERN AGKATIE FOR NO APPARENT REASON,. PATIENT IS AAO3. APPEARS IN NO APPARENT DISTRESS. RESPIRATION EVEN AND UNLABORED. AFEBRILE. VSS
--- NOTE | 2017-07-21 16:37 | NUR ---
ROOM 215 MD SALCIDO
--- NOTE | 2017-07-21 16:38 | NUR ---
EKG ON GOING
[2017-07-21 16:51] LABS: BASOPHILS # (AUTO) 0.1 /CMM (0.0-0.2); BASOPHILS % (AUTO) 0.4 % (0.0-2.0); EOSINOPHILS # (AUTO) 0.2 /CMM (0.0-0.7); HEMATOCRIT 46 % (39-51); HEMOGLOBIN 14.9 g/dL (13.5-17.5); LYMPHOCYTES # (AUTO) 2.4 /CMM (0.8-4.8); LYMPHOCYTES % (AUTO) 19.8 % (20.0-44.0); MEAN CORPUSCULAR HEMOGLOBIN 30 PG (26.0-33.0); MEAN CORPUSCULAR HGB CONC 33 g/dl (31.0-36.0); MEAN CORPUSCULAR VOLUME 91 fL (80-96); MONOCYTES # (AUTO) 0.9 /CMM (0.1-1.30); MONOCYTES % (AUTO) 7.1 % (2.0-12.0); NEUTROPHILS # (AUTO) 8.6 /CMM (1.8-8.9); NEUTROPHILS % (AUTO) 70.7 % (43.0-81.0); PLATELET COUNT (AUTO) 250 /CMM (150-450); RDW COEFFICIENT OF VARIATION 14.2 (11.5-15.0); RED BLOOD CELL COUNT(AUTO) 5.02 MIL/uL (4.5-6.0); WHITE BLOOD COUNT (AUTO) 12.1 K/uL (4.3-11.0)
[2017-07-21 16:58] LABS: CALCIUM, SERUM 8.2 mg/dL (8.5-10.1); CARBON DIOXIDE 32 mmol/L (21-32); CHLORIDE 103 mmol/L (98-107); GLUCOSE 102 mg/dL (74-106); POTASSIUM 4.5 mmol/L (3.5-5.1); SODIUM SERUM 140 mmol/L (136-145); UREA NITROGEN, BLOOD 19 mg/dL (7-18)
[2017-07-21 17:00] LABS: ALCOHOL, BLOOD < 3 mg/dL (0-0)
--- NOTE | 2017-07-21 17:05 | NUR ---
PATIENT WAS TAKEN TO CT
--- NOTE | 2017-07-21 17:07 | NUR ---
PATIENT IS BACK FROM CT
--- NOTE | 2017-07-21 17:15 | NUR ---
RECEIVED CALL BACK FROM [facility] PSY[facility] FACETOR. ETA 1 HOUR
[2017-07-21] MEDS ORDERED: INSU100V26 SQ (17:19)
[2017-07-21] MEDS ORDERED: POTA20TA83 PO (17:19)
[2017-07-21] MEDS ORDERED: ZOLP5TAB7 PO (17:19)
[2017-07-21] MEDS ORDERED: SIMV10TA6 PO (17:19)
[2017-07-21] MEDS ORDERED: ASPI81TA2 PO (17:19)
[2017-07-21 17:24] LABS: TROPONIN I < 0.017 ng/mL (0.00-0.056)
[2017-07-21 17:25] LABS: APPEARANCE,URINE Clear (CLEAR); BILIRUBIN,URINE Negative (NEGATIVE); BLOOD, URINE Negative Ery/uL (NEGATIVE); COLOR,URINE Yellow (YELLOW); KETONES,URINE Negative (NEGATIVE); LEUKOCYTE ESTERASE ,URINE Negative (NEGATIVE); NITRITE, URINE Negative (NEGATIVE); PROTEIN,URINE Negative (NEGATIVE); UGLUCOSE Negative (NEGATIVE); UROBILINOGEN,URINE 0.2 EU/dL (0.2)
--- NOTE | 2017-07-21 18:07 | NUR ---
REPORT GIVEN TO ASHKAN THAPA FOR ANA CRISTINA
--- NOTE | 2017-07-21 18:08 | NUR ---
AWAITING FOR LOUIE LUTHER
--- NOTE | 2017-07-21 18:25 | NUR ---
PINKY RN AT BEDSIDE
--- NOTE | 2017-07-21 18:54 | NUR ---
PATIENT TRANSPORTED TO GPS. VSS
--- NOTE | 2017-07-21 20:02 | NUR ---
GPS/RN NOTE: PATIENT'S INITIAL BLOOD SUGAR 113 MG/DL. NO INSULIN DUE AT THIS TIME.
--- NOTE | 2017-07-21 20:03 | NUR ---
GPS/RN NOTE: PAGED DR. COLLINS FOR ORDERS AND MED RECONCILIATION
--- NOTE | 2017-07-21 20:05 | NUR ---
GPS/RN NOTE: FAMILY NOTIFIED ABOUT PATIENT BEING ADMITTED TO GPS UNIT, NO ANSWER. LEFT A MESSAGE TO SWAPNA SPAIN, (SISTER).
--- NOTE | 2017-07-21 20:07 | NUR ---
GPS/RN NOTE: ADMITTED FROM [facility], [facility]IT[facility]ALLY [facility], CAME TO THE UNIT AROUND 1900 ON A WHEELCHAIR, ACCOMPANIED BY 1 MALE ER STAFF. PATIENT ADMITTED 0N 5150 HOLD FOR DTO AND GD. PER HOLD PATIENT PATIENT HAD BEEN INCREASINGLY AGITATED AND PHYSICALLY AGGRESSIVE TOWARD OTHER RESIDENCE AT THE FACILITY. UPON FACE TO FACE, PATIENT WAS ALERT, ORIENTED X1, CONFUSED, DISORGANIZED, AGITATED, LABILE IMPULSIVE, AND IMPULSIVE, UNPREDICTABLE AND VERBALLY ABUSIVE TOWARD STAFF AND HIS FAMILY.PUSHED OTHER RESIDENTS AND DISRUPTIVE TO THE UNIT. PATIENT WAS PLACED IN HIS ROOM, AWAKE,ALERT, KNOWS HIS NAME AND TIME AND NOT THE PLACE, STATED THAT HE IS IN [place]. RESPIRATION VERA, BREATHING PATTERN NON-LABORED. NO APPARENT DISTRESS NOTED. SKIN ASSESSMENT DONE, NOTED REDNESS OVER GROIN AREA, OTHERWISE SKIN INTACT. AMBULATES ON HIS OWN. PATIENT IS DISORIENTED, ABLE TO PROVIDE SOME INFORMATIONS, PATIENT IS CLEAN. PATIENT IS VERY IMPULSIVE, YELLS, AGGRESSIVE, DISORGANIZED, UNPREDICTABLE. COOPERATIVE, FOLLOWS INSTRUCTIONS. PATIENT IS UNDER THE CARE OF DR. BROWN AND MEDICAL CARE OF DR. GAINES. BELONGINGS WERE INVENTORIED AND CHECKED FOR CONTRABAND. VALUABLES PUT IN TO SAFE. PAGED DR. COLLINS FOR ORDERS AND MED RECON. SPOKE TO JAS ZAMARRIPA RE: MED. RECON. BED LOCKED AND PLACED ON LOWEST POSITION FOR SAFETY. WILL CONTINUE TO MONITOR Q 15 MINS. TO MAINTAIN SAFETY.
[2017-07-21] MEDS: BLOOD SUGAR DIAGNOSTIC 1 EACH STRIP IN SCH (20:27)
[2017-07-21] MEDS ORDERED: HYDROCODONE/APAP 5/325MG 1 EACH TABLET PO PRN (20:30)
[2017-07-21] MEDS ORDERED: MAG HYDROX/AL HYDROX/SIMETH 30 ML UDC PO PRN ×2 (20:30→21:00)
[2017-07-21] MEDS ORDERED: BISACODYL SUPP (10 MG) 10 MG/SUPP.RECT SUPP.RECT RC PRN (20:30)
[2017-07-21] MEDS ORDERED: DEXTROSE 50%-WATER 50 ML DISP.SYRIN IV PRN (20:30)
[2017-07-21] MEDS ORDERED: MAGNESIUM HYDROXIDE 30 ML UDC PO PRN ×2 (20:30→21:00)
[2017-07-21] MEDS ORDERED: ACETAMINOPHEN 325 MG TABLET PO PRN ×2 (20:30→21:00)
[2017-07-21] MEDS ORDERED: LORAZEPAM 0.5 MG TABLET PO PRN (21:00)
[2017-07-21] MEDS: TEMAZEPAM 7.5 MG CAPSULE PO PRN (21:46)
[2017-07-21] MEDS: SIMVASTATIN 10 MG TABLET PO SCH (21:46)
--- NOTE | 2017-07-21 21:47 | NUR ---
GPS/RN NOTE: PATIENT WANDERING AROUND THE UNIT, CONFUSED, UNABLE TO SIT STILL, TEMAZEPAM 7.5 MG CAP 1 PO GIVEN.
--- NOTE | 2017-07-21 23:04 | NUR ---
GPS/RN NOTE: PATIENT STILL AWAKE, ENCOURAGED TO GO TO SLEEP AT THIS TIME.
--- NOTE | 2017-07-22 06:36 | NUR ---
GPS/RN NOTE: C/O PAIN SCROTAL AREA, 8/10 ON PAIN SCALE, HYDROCODONE 5/325 MG TAB PO 2 GIVEN.
[2017-07-22 06:43] LABS: CREATININE 0.9 mg/dL (0.6-1.3)
[2017-07-22 06:56] VITALS: BP 123/73
[2017-07-22] MEDS: PANTOPRAZOLE 40 MG TABLET.DR PO SCH ×2 (07:58→08:31)
[2017-07-22] MEDS: BLOOD SUGAR DIAGNOSTIC 1 EACH STRIP IN SCH ×4 (07:58→21:44)
[2017-07-22] MEDS: INSULIN REGULAR, HUMAN 100 UNIT/ML 3 ML VIAL SQ PRN ×2 (07:59→21:46)
[2017-07-22 08:06] VITALS: BP 109/67
[2017-07-22] MEDS: DOCUSATE SODIUM 100 MG CAPSULE PO SCH (08:29)
[2017-07-22] MEDS: LISINOPRIL (5MG) 5 MG TABLET PO SCH (08:30)
[2017-07-22] MEDS: AMLODIPINE BESYLATE 5 MG TABLET PO SCH (08:30)
[2017-07-22] MEDS: ASPIRIN 81 MG TAB.CHEW PO SCH (08:31)
--- NOTE | 2017-07-22 08:33 | NUR ---
GPS RN NOTES/ ADMINISTERED ATIVAN 0.5 MG PO PRN FOR ANXIETY, PARANOIA, V/S -110/69, P-63, CONTINUED MONITORING.
[2017-07-22] MEDS ORDERED: POTASSIUM CHLORIDE 20 MEQ TAB.PRT.SR PO SCH (09:00)
[2017-07-22 16:10] VITALS: BP 126/72
[2017-07-22] MEDS: DIVALPROEX SODIUM 500 MG TABLET.DR PO SCH (17:55)
[2017-07-22] MEDS: QUETIAPINE FUMARATE 100 MG TABLET PO SCH (17:56)
[2017-07-22 20:05] VITALS: BP 144/87
[2017-07-22] MEDS: SIMVASTATIN 10 MG TABLET PO SCH (21:44)
[2017-07-22] MEDS: TEMAZEPAM 7.5 MG CAPSULE PO PRN (21:44)
[2017-07-23] MEDS: BLOOD SUGAR DIAGNOSTIC 1 EACH STRIP IN SCH ×4 (07:30→23:18)
[2017-07-23 08:00] VITALS: BP 129/77
[2017-07-23] MEDS: AMLODIPINE BESYLATE 5 MG TABLET PO SCH (08:51)
[2017-07-23] MEDS: QUETIAPINE FUMARATE 100 MG TABLET PO SCH ×3 (08:51→16:13)
[2017-07-23] MEDS: LISINOPRIL (5MG) 5 MG TABLET PO SCH (08:52)
[2017-07-23] MEDS: DOCUSATE SODIUM 100 MG CAPSULE PO SCH (08:52)
[2017-07-23] MEDS: ASPIRIN 81 MG TAB.CHEW PO SCH (08:52)
[2017-07-23] MEDS: DIVALPROEX SODIUM 500 MG TABLET.DR PO SCH ×2 (08:52→16:13)
[2017-07-23] MEDS: INSULIN REGULAR, HUMAN 100 UNIT/ML 3 ML VIAL SQ PRN (12:06)
--- NOTE | 2017-07-23 12:08 | NUR ---
Initial Discharge Plan: Patient resides at [facility] located at [address] [place] [address]; [phone]. Per Radha at [facility], patient is able to return when ready for discharge. DEBBY contacted pt's sister, Jo at [phone]; [phone] and updated her on pt. Jo stated that she supports him returning to [facility]. DEBBY also followed up with [facility] and was informed that pt's POA was Jo [sister,[phone]; [phone]]. SW will help form a safe and proper discharge.
[2017-07-23 16:00] VITALS: BP 103/71
[2017-07-23 20:00] VITALS: BP 151/74
[2017-07-23] MEDS: TEMAZEPAM 7.5 MG CAPSULE PO PRN (21:55)
[2017-07-23] MEDS: SIMVASTATIN 10 MG TABLET PO SCH (21:55)
[2017-07-24] MEDS: BLOOD SUGAR DIAGNOSTIC 1 EACH STRIP IN SCH ×4 (07:42→21:24)
[2017-07-24 08:22] VITALS: BP 128/90
[2017-07-24] MEDS: DIVALPROEX SODIUM 500 MG TABLET.DR PO SCH ×2 (08:38→17:00)
[2017-07-24] MEDS: QUETIAPINE FUMARATE 100 MG TABLET PO SCH ×3 (08:38→17:00)
[2017-07-24] MEDS: DOCUSATE SODIUM 100 MG CAPSULE PO SCH (08:38)
[2017-07-24] MEDS: PANTOPRAZOLE 40 MG TABLET.DR PO SCH (08:39)
[2017-07-24] MEDS: LISINOPRIL (5MG) 5 MG TABLET PO SCH (08:39)
[2017-07-24] MEDS: ASPIRIN 81 MG TAB.CHEW PO SCH (08:39)
[2017-07-24] MEDS: AMLODIPINE BESYLATE 5 MG TABLET PO SCH (08:39)
[2017-07-24 16:00] VITALS: BP 101/60
[2017-07-24 20:00] VITALS: BP 122/97
[2017-07-24] MEDS: TEMAZEPAM 7.5 MG CAPSULE PO PRN (21:24)
[2017-07-24] MEDS: SIMVASTATIN 10 MG TABLET PO SCH (21:24)
[2017-07-25 07:32] LABS: BASOPHILS % (AUTO) 0.2 % (0.0-2.0); EOSINOPHILS # (AUTO) 0.3 /CMM (0.0-0.7); EOSINOPHILS % (AUTO) 2.4 % (0.0-6.0); HEMATOCRIT 48 % (39-51); HEMOGLOBIN 15.6 g/dL (13.5-17.5); LYMPHOCYTES # (AUTO) 2.4 /CMM (0.8-4.8); LYMPHOCYTES % (AUTO) 21.6 % (20.0-44.0); MEAN CORPUSCULAR HEMOGLOBIN 30 PG (26.0-33.0); MEAN CORPUSCULAR HGB CONC 33 g/dl (31.0-36.0); MEAN CORPUSCULAR VOLUME 92 fL (80-96); MONOCYTES # (AUTO) 1.2 /CMM (0.1-1.30); MONOCYTES % (AUTO) 10.3 % (2.0-12.0); NEUTROPHILS # (AUTO) 7.3 /CMM (1.8-8.9); NEUTROPHILS % (AUTO) 65.5 % (43.0-81.0); PLATELET COUNT (AUTO) 203 /CMM (150-450); RDW COEFFICIENT OF VARIATION 14.3 (11.5-15.0); WHITE BLOOD COUNT (AUTO) 11.2 K/uL (4.3-11.0)
[2017-07-25] MEDS: BLOOD SUGAR DIAGNOSTIC 1 EACH STRIP IN SCH ×4 (07:50→21:33)
[2017-07-25 07:53] LABS: ALBUMIN 3.3 g/dL (3.4-5.0); BILIRUBIN,TOTAL 0.4 mg/dL (0.2-1.0); CALCIUM, SERUM 8.5 mg/dL (8.5-10.1); CREATININE 0.9 mg/dL (0.6-1.3); POTASSIUM 4.8 mmol/L (3.5-5.1)
[2017-07-25 08:00] VITALS: BP 118/68
[2017-07-25] MEDS: DOCUSATE SODIUM 100 MG CAPSULE PO SCH (08:56)
[2017-07-25] MEDS: PANTOPRAZOLE 40 MG TABLET.DR PO SCH (08:56)
[2017-07-25] MEDS: QUETIAPINE FUMARATE 100 MG TABLET PO SCH ×3 (08:56→16:12)
[2017-07-25] MEDS: AMLODIPINE BESYLATE 5 MG TABLET PO SCH (08:56)
[2017-07-25] MEDS: LISINOPRIL (5MG) 5 MG TABLET PO SCH (08:56)
[2017-07-25] MEDS: ASPIRIN 81 MG TAB.CHEW PO SCH (08:56)
[2017-07-25] MEDS: DIVALPROEX SODIUM 500 MG TABLET.DR PO SCH ×2 (08:56→16:12)
[2017-07-25 16:01] VITALS: BP 124/62
[2017-07-25 20:00] VITALS: BP 109/74
[2017-07-25] MEDS: SIMVASTATIN 10 MG TABLET PO SCH (21:33)
[2017-07-25] MEDS: TEMAZEPAM 7.5 MG CAPSULE PO PRN (21:34)
[2017-07-25] MEDS: INSULIN REGULAR, HUMAN 100 UNIT/ML 3 ML VIAL SQ PRN (21:35)
--- NOTE | 2017-07-26 07:59 | NUR ---
[id number]-[id number]: BLOOD SUGAR IS 120 MG /DL AND NO INSULIN REQUIRED AT THIS TIME
[2017-07-26 08:00] VITALS: BP 123/61
[2017-07-26] MEDS: BLOOD SUGAR DIAGNOSTIC 1 EACH STRIP IN SCH ×4 (08:13→21:28)
[2017-07-26] MEDS: PANTOPRAZOLE 40 MG TABLET.DR PO SCH (08:13)
[2017-07-26] MEDS: DIVALPROEX SODIUM 500 MG TABLET.DR PO SCH ×2 (08:13→16:38)
[2017-07-26] MEDS: ASPIRIN 81 MG TAB.CHEW PO SCH (08:13)
[2017-07-26] MEDS: DOCUSATE SODIUM 100 MG CAPSULE PO SCH (08:14)
[2017-07-26] MEDS: AMLODIPINE BESYLATE 5 MG TABLET PO SCH (08:14)
[2017-07-26] MEDS: LISINOPRIL (5MG) 5 MG TABLET PO SCH (08:14)
[2017-07-26] MEDS: QUETIAPINE FUMARATE 100 MG TABLET PO SCH ×3 (08:14→16:39)
--- NOTE | 2017-07-26 12:27 | NUR ---
[id number]-VP-[id number]: BLOOD SUGAR IS 110 MG/DL AND NO INSULIN REQUIRED AT THIS TIME.
[2017-07-26 16:00] VITALS: BP 110/75
--- NOTE | 2017-07-26 16:50 | NUR ---
XVB-CU-[id number]: BLOOD SUGAR IS 85 MG/DL AND NO INSULIN REQUIRED AT THIS TIME
[2017-07-26 20:14] VITALS: BP 119/97
[2017-07-26] MEDS: SIMVASTATIN 10 MG TABLET PO SCH (21:25)
[2017-07-26] MEDS: TEMAZEPAM 7.5 MG CAPSULE PO PRN (21:25)
--- NOTE | 2017-07-27 07:13 | NUR ---
[id number]: BLOOD SUGAR IS 98 MG/DL AND NO INSULIN REQUIRED AT THIS TIME
[2017-07-27 07:19] LABS: BASOPHILS % (AUTO) 0.4 % (0.0-2.0); EOSINOPHILS # (AUTO) 0.1 /CMM (0.0-0.7); EOSINOPHILS % (AUTO) 1.4 % (0.0-6.0); HEMATOCRIT 47 % (39-51); HEMOGLOBIN 15.2 g/dL (13.5-17.5); LYMPHOCYTES # (AUTO) 2.3 /CMM (0.8-4.8); LYMPHOCYTES % (AUTO) 25.6 % (20.0-44.0); MEAN CORPUSCULAR HEMOGLOBIN 30 PG (26.0-33.0); MEAN CORPUSCULAR HGB CONC 32 g/dl (31.0-36.0); MEAN CORPUSCULAR VOLUME 92 fL (80-96); MONOCYTES # (AUTO) 1.1 /CMM (0.1-1.30); MONOCYTES % (AUTO) 11.8 % (2.0-12.0); NEUTROPHILS # (AUTO) 5.5 /CMM (1.8-8.9); NEUTROPHILS % (AUTO) 60.8 % (43.0-81.0); PLATELET COUNT (AUTO) 200 /CMM (150-450); RDW COEFFICIENT OF VARIATION 14.7 (11.5-15.0); RED BLOOD CELL COUNT(AUTO) 5.12 MIL/uL (4.5-6.0); WHITE BLOOD COUNT (AUTO) 9.1 K/uL (4.3-11.0)
[2017-07-27 07:40] LABS: CALCIUM, SERUM 8.7 mg/dL (8.5-10.1); CREATININE 0.9 mg/dL (0.6-1.3); MAGNESIUM 2.2 mg/dL (1.8-2.4); PHOSPHORUS 4.3 mg/dL (2.5-4.9); POTASSIUM 4.4 mmol/L (3.5-5.1)
[2017-07-27] MEDS: PANTOPRAZOLE 40 MG TABLET.DR PO SCH (07:49)
[2017-07-27] MEDS: BLOOD SUGAR DIAGNOSTIC 1 EACH STRIP IN SCH ×4 (07:49→21:15)
[2017-07-27 07:51] VITALS: BP 114/65
[2017-07-27] MEDS: DIVALPROEX SODIUM 500 MG TABLET.DR PO SCH ×2 (08:13→16:06)
[2017-07-27] MEDS: LISINOPRIL (5MG) 5 MG TABLET PO SCH (08:13)
[2017-07-27] MEDS: DOCUSATE SODIUM 100 MG CAPSULE PO SCH (08:14)
[2017-07-27] MEDS: ASPIRIN 81 MG TAB.CHEW PO SCH (08:14)
[2017-07-27] MEDS: AMLODIPINE BESYLATE 5 MG TABLET PO SCH (08:14)
[2017-07-27] MEDS: QUETIAPINE FUMARATE 100 MG TABLET PO SCH ×3 (08:22→16:06)
--- NOTE | 2017-07-27 11:00 | NUR ---
XHN-GV-[id number]: NOTIFIED DR. GAINES ABOUT LAB VALUES ON 07/27/17: NA= 146, CHLORIDE= 108, BUN= 19. NO NEW ORDERS GIVEN AT THIS TIME
--- NOTE | 2017-07-27 11:59 | NUR ---
LDK-MG-NUMPE: BLOOD SUGAR IS 109 MG/DL AND NO INSULIN REQUIRED AT THIS TIME.
--- NOTE | 2017-07-27 15:21 | NUR ---
DEBBY spoke with psychiatrist, Dr. Maravilla who was covering for Dr. Hayes. Dr. Maravilla cleared pt for dc tomorrow, 07/28. DEBBY spoke with Layne from [facility], and confirmed that pt will be taken back upon discharge. DEBBY also left a voicemail for pt's sister, Jo; [phone] with an updated. DEBBY will secure transport via ambulance.
[2017-07-27 15:43] VITALS: BP 110/72
--- NOTE | 2017-07-27 16:00 | NUR ---
[id number]-[id number]: BLOOD SUGAR IS 129 MG/DL AND NO INSULIN REQUIRED AT THIS TIME.
[2017-07-27 19:36] VITALS: BP 122/68
[2017-07-27] MEDS: SIMVASTATIN 10 MG TABLET PO SCH (21:15)
[2017-07-27] MEDS: TEMAZEPAM 7.5 MG CAPSULE PO PRN (21:15)
[2017-07-28] MEDS: BLOOD SUGAR DIAGNOSTIC 1 EACH STRIP IN SCH ×4 (07:48→21:37)
[2017-07-28] MEDS: PANTOPRAZOLE 40 MG TABLET.DR PO SCH (07:49)
--- NOTE | 2017-07-28 07:59 | NUR ---
[id number]: BLOOD SUGAR IS 90 MG/DL AND NO INSULIN REQUIRED AT THIS TIME.
[2017-07-28 08:00] VITALS: BP 127/79
[2017-07-28] MEDS: QUETIAPINE FUMARATE 100 MG TABLET PO SCH ×3 (08:04→16:26)
[2017-07-28] MEDS: DOCUSATE SODIUM 100 MG CAPSULE PO SCH (08:04)
[2017-07-28] MEDS: AMLODIPINE BESYLATE 5 MG TABLET PO SCH (08:05)
[2017-07-28] MEDS: LISINOPRIL (5MG) 5 MG TABLET PO SCH (08:05)
[2017-07-28] MEDS: ASPIRIN 81 MG TAB.CHEW PO SCH (08:06)
[2017-07-28] MEDS: DIVALPROEX SODIUM 500 MG TABLET.DR PO SCH ×2 (08:29→16:26)
--- NOTE | 2017-07-28 12:00 | NUR ---
[id number]-[id number]-[id number]: BLOOD SUGAR IS 99 MG/DL AND NO INSULIN REQUIRED AT THIS TIME
--- NOTE | 2017-07-28 13:01 | NUR ---
DEBBY called pt's sister, Jo; [phone] and spoke with her. DEBBY informed Jo that patient will be discharged tomorrow instead of today as previously planned. Jo was agreeable with the information. DEBBY will follow up once pt is discharged.
[2017-07-28 16:00] VITALS: BP 100/61
[2017-07-28 20:04] VITALS: BP 149/51
[2017-07-28] MEDS: TEMAZEPAM 7.5 MG CAPSULE PO PRN (21:36)
[2017-07-28] MEDS: SIMVASTATIN 10 MG TABLET PO SCH (21:36)
[2017-07-29 08:00] VITALS: BP 117/59
[2017-07-29] MEDS: QUETIAPINE FUMARATE 100 MG TABLET PO SCH ×3 (08:14→16:33)
[2017-07-29] MEDS: DIVALPROEX SODIUM 500 MG TABLET.DR PO SCH ×2 (08:14→16:33)
[2017-07-29] MEDS: LISINOPRIL (5MG) 5 MG TABLET PO SCH (08:14)
[2017-07-29] MEDS: PANTOPRAZOLE 40 MG TABLET.DR PO SCH (08:14)
[2017-07-29] MEDS: DOCUSATE SODIUM 100 MG CAPSULE PO SCH (08:14)
[2017-07-29] MEDS: ASPIRIN 81 MG TAB.CHEW PO SCH (08:14)
[2017-07-29] MEDS: BLOOD SUGAR DIAGNOSTIC 1 EACH STRIP IN SCH ×4 (08:14→21:19)
[2017-07-29] MEDS: AMLODIPINE BESYLATE 5 MG TABLET PO SCH (08:15)
[2017-07-29 16:00] VITALS: BP 115/64
[2017-07-29 20:16] VITALS: BP 111/67
[2017-07-29] MEDS: SIMVASTATIN 10 MG TABLET PO SCH (21:18)
[2017-07-29] MEDS: TEMAZEPAM 7.5 MG CAPSULE PO PRN (21:19)
--- NOTE | 2017-07-30 07:20 | NUR ---
GPS RN NOTE: RECEIVED PT SITTING IN ACTIVITIES ROOM. A&OX2, DEPRESSED MOOD WITH BLUNTED AFFECT. RESPIRATIONS EVEN AND UNLABORED. DENIES SI/HI AT THIS TIME. DENIES PAIN. WILL CONT TO MONITOR FOR SAFETY AND BEHAVIOR.
[2017-07-30 08:00] VITALS: BP 129/69
[2017-07-30] MEDS: PANTOPRAZOLE 40 MG TABLET.DR PO SCH (08:21)
[2017-07-30] MEDS: QUETIAPINE FUMARATE 100 MG TABLET PO SCH ×3 (08:21→16:39)
[2017-07-30] MEDS: DOCUSATE SODIUM 100 MG CAPSULE PO SCH (08:21)
[2017-07-30] MEDS: ASPIRIN 81 MG TAB.CHEW PO SCH (08:22)
[2017-07-30] MEDS: LISINOPRIL (5MG) 5 MG TABLET PO SCH (08:22)
[2017-07-30] MEDS: DIVALPROEX SODIUM 500 MG TABLET.DR PO SCH ×2 (08:22→16:32)
[2017-07-30] MEDS: BLOOD SUGAR DIAGNOSTIC 1 EACH STRIP IN SCH ×4 (08:23→21:22)
[2017-07-30] MEDS: AMLODIPINE BESYLATE 5 MG TABLET PO SCH (08:23)
[2017-07-30] MEDS: INSULIN REGULAR, HUMAN 100 UNIT/ML 3 ML VIAL SQ PRN (08:52)
[2017-07-30 16:24] VITALS: BP 129/66
--- NOTE | 2017-07-30 19:00 | NUR ---
GPS RN NOTE: NO ACUTE CHANGES DURING SHIFT. ORDERS CARRIED OUT. WILL ENDORSE TO LOFT PATTERNMAKER NURSE FOR ANA CRISTINA.
[2017-07-30 20:00] VITALS: BP 101/58
[2017-07-30] MEDS: SIMVASTATIN 10 MG TABLET PO SCH (21:21)
[2017-07-30] MEDS: TEMAZEPAM 7.5 MG CAPSULE PO PRN (21:22)
[2017-07-31 06:40] LABS: BASOPHILS % (AUTO) 0.3 % (0.0-2.0); EOSINOPHILS # (AUTO) 0.1 /CMM (0.0-0.7); EOSINOPHILS % (AUTO) 1.6 % (0.0-6.0); HEMATOCRIT 46 % (39-51); HEMOGLOBIN 15.3 g/dL (13.5-17.5); LYMPHOCYTES # (AUTO) 1.7 /CMM (0.8-4.8); LYMPHOCYTES % (AUTO) 18.9 % (20.0-44.0); MEAN CORPUSCULAR HEMOGLOBIN 30 PG (26.0-33.0); MEAN CORPUSCULAR HGB CONC 33 g/dl (31.0-36.0); MEAN CORPUSCULAR VOLUME 91 fL (80-96); MONOCYTES # (AUTO) 0.9 /CMM (0.1-1.30); MONOCYTES % (AUTO) 9.3 % (2.0-12.0); NEUTROPHILS # (AUTO) 6.5 /CMM (1.8-8.9); NEUTROPHILS % (AUTO) 69.9 % (43.0-81.0); PLATELET COUNT (AUTO) 203 /CMM (150-450); RDW COEFFICIENT OF VARIATION 14.8 (11.5-15.0); RED BLOOD CELL COUNT(AUTO) 5.06 MIL/uL (4.5-6.0); WHITE BLOOD COUNT (AUTO) 9.3 K/uL (4.3-11.0)
[2017-07-31] MEDS: BLOOD SUGAR DIAGNOSTIC 1 EACH STRIP IN SCH ×2 (07:30→12:00)
[2017-07-31 08:00] VITALS: BP 109/72
[2017-07-31] MEDS: ASPIRIN 81 MG TAB.CHEW PO SCH (09:05)
[2017-07-31 09:06] VITALS: BP 109/72
[2017-07-31] MEDS: DIVALPROEX SODIUM 500 MG TABLET.DR PO SCH (09:06)
[2017-07-31] MEDS: QUETIAPINE FUMARATE 100 MG TABLET PO SCH ×2 (09:06→12:57)
[2017-07-31] MEDS: AMLODIPINE BESYLATE 5 MG TABLET PO SCH (09:06)
[2017-07-31] MEDS: DOCUSATE SODIUM 100 MG CAPSULE PO SCH (09:06)
[2017-07-31] MEDS: LISINOPRIL (5MG) 5 MG TABLET PO SCH (09:06)
[2017-07-31] MEDS: PANTOPRAZOLE 40 MG TABLET.DR PO SCH (09:10)
--- NOTE | 2017-07-31 09:43 | NUR ---
Patient will be discharged back to [facility] [place] [address] [place] [address]; [phone] via ambulance around noon. Medical Facilities Section Director left a voicemail for patients sisterJo, [phone] and informed her of the discharge. Medical Facilities Section Director also followed up with Melissa from [facility] and she is aware of the discharge. Patient will follow up with his psychiatrist, Dr. Hayes; [address] [facility], [address], [address] [facility], [address], [phone] on 08/03/17 at noon. Patient will also follow up with his supervisor travel trailer, Dr. [place]; [address] [address] . Patient has no history or current substance use. Patient is not a smoker.
--- NOTE | 2017-07-31 10:05 | NUR ---
RN-CO: Dr. Hayes gave an order to discontinue hold and discharge patient to [facility]. Noted and carried out. Sister Jo [phone] made aware of the patient discharge.
--- NOTE | 2017-07-31 13:45 | NUR ---
GPS/RN NO SI OR HI AT THE TIME OF D/C REPORTED. VSS. PT AMBULATORY NO DISTRESS, AGITATION. REFUSED TO SIGN DISCHARGE PAPERWORK. BELONGINGS RETURNED. REPORT GIVEN TO JENSEN LUTHER/WIRE COATING MACHINE OPERATOR AT [facility].H&P AND MEDS RECONCILIATION PROVIDED. PT LEFT [facility]IA [facility]
== END 2017-07-31 13:45 | DRG 885 ==
LOC: ER 16:15 → GPS 18:56
PROVIDERS: ADMIT Psychiatry & Neurology Psychiatry; ATTEND Internal Medicine Critical Care Medicine
DX: F31.64 Bipolar disorder, current episode mixed, severe, with psychotic features (principal); I11.0 Hypertensive heart disease with heart failure; F03.90 Unspecified dementia, unspecified severity, without behavioral disturbance, psychotic disturbance, mood disturbance, and anxiety; I50.22 Chronic systolic (congestive) heart failure; F25.9 Schizoaffective disorder, unspecified; E11.9 Type 2 diabetes mellitus without complications; D72.829 Elevated white blood cell count, unspecified; E78.5 Hyperlipidemia, unspecified; F29 Unspecified psychosis not due to a substance or known physiological condition; Z73.6 Limitation of activities due to disability; K21.9 Gastro-esophageal reflux disease without esophagitis; Z79.84 Long term (current) use of oral hypoglycemic drugs; Z86.73 Personal history of transient ischemic attack (TIA), and cerebral infarction without residual deficits
CPT/HCPCS: 36415; 70450-TC; 71010-TC; 80048-TC; 80053-TC; 80061-TC; 80164-TC; 80305; 81000-TC; 82565-TC; 82962-TC; 83735-TC; 84100-TC; 84484-TC; 85025-TC; 87081-TC; A4606; G0480; J1815; Z7610